=== PATIENT | female | born 1975 | race Caucasian/White ===

== ENCOUNTER 2024-07-08 15:42 | Inpatient (IN) | payer MEDICAID ==
[~2024-07-08] VITALS: Ht 165.1 cm; Wt 105.6 kg
--- NOTE | 2024-07-08 15:59 | Physician Documentation ---
History of Present Illness ~ Stated Complaint: 5150 Time Seen by MD: 15:51 HPI 28-year-old female presents via EMS after being placed on a 5150 by [facility] today. The patient is unwilling to cooperate with the interview in his resistant to provide the appropriate information. According to her 5150 she was experiencing paranoid and bizarre delusions. Believes she was being followed and endorses auditory hallucinations. Currently unable to meet her basic needs for food and half-way and keeps safe. According to paperwork Arlene his father dog says she was not talked to him for over a year and refuses to stay with the because she believes she has been locked into a facility previously. Day of Onset: Jul 08, 2024 Review of Systems All Other Systems at this time: Reviewed and Negative ROS As stated above in the HPI, otherwise all systems are reviewed and negative. Physical Exam Physical Exam General: Alert, no apparent distress. Respiratory: Lungs clear, no respiratory distress. Cardiovascular: Regular rate and rhythm, no murmurs. Neurologic: Oriented x4. Psychiatric: Flat affect, agitated responses Skin: Normal color, warm and dry. No edema, no ecchymosis. Progress Results/Orders Results/Orders Orders - JAGDISH CODY NP Med Rec (07/08/24 16:10) 1799.11 (07/08/24 16:10) Close Observation Level (07/08/24 16:10) Covid19 Binax Poc Result Entry (07/08/24 16:10) Substance Use Navigator (07/08/24 16:10) Regular Diet (07/08/24 Dinner) Completed Orders - JAGDISH CODY NP Cbc/Diff (07/08/24 16:10) Hcg, Ur Ql (07/08/24 16:10) Drug Screen, Urine (07/08/24 16:10) Ethanol (07/08/24 16:10) TSH (07/08/24 16:10) BMP (07/08/24 16:10) Ua With Microscopic (07/08/24 17:01) Vital Signs 07/08/24 15:50 Temp 97.0 Pulse 66 Resp 16 B/P (MAP) 108/92 Pulse Ox 96 Laboratory Tests Test 07/08/24 16:25 07/08/24 17:01 07/08/24 17:04 White Blood Count 5.4 Red Blood Count 4.72 Hemoglobin 12.4 Hematocrit 38.1 Mean Corpuscular Volume 80.8 Mean Corpuscular Hemoglobin 26.3 L Mean Corpuscular Hemoglobin Concent 32.5 L Red Cell Distribution Width 16.5 H Platelet Count 328 Mean Platelet Volume 8.6 Neutrophils (%) (Auto) 54.3 Lymphocytes (%) (Auto) 32.5 Monocytes (%) (Auto) 10.7 Eosinophils (%) (Auto) 1.5 Basophils (%) (Auto) 1.0 Neutrophils # (Auto) 2.9 Lymphocytes # (Auto) 1.8 Monocytes # (Auto) 0.6 Eosinophils # (Auto) 0.1 Basophils # (Auto) 0.1 CBC Comment Sodium Level 138 Potassium Level 3.2 L Chloride Level 104 Carbon Dioxide Level 26.1 Anion Gap 8 Blood Urea Nitrogen 7 Creatinine 0.78 Estimated GFR/1.73 m2 78 BUN/Creatinine Ratio 9.0 L Glucose Level 108 H Calcium Level 8.8 Albumin 3.7 Thyroid Stimulating Hormone (TSH) 1.35 Chemistry Comments Ethyl Alcohol Level < 10 Urine Specimen Description Voided Urine Color Yellow Urine Clarity Slightly cloudy Urine pH 6.0 Urine Specific [place] 1.025 Urine Protein Trace Urine Glucose (UA) Negative Urine Ketones Trace H Urine Occult Blood Negative Urine Nitrite Negative Urine Bilirubin Small Urine Urobilinogen 0.2 Urine Leukocyte Esterase Trace H Urine RBC 3-10 Urine WBC 0-4 Urine Squamous Epithelial Cells Few Urine Ammonium Biurate Crystals 3+ Urine Bacteria None seen Urine Mucus Few Volume Urine Centrifuged 10 ml Urine HCG, Qualitative Negative Urine Comment Urine Opiates Screen Negative Urine Methadone Screen Negative Urine Fentanyl Screen Negative Urine Barbiturates Screen Negative Urine Phencyclidine Screen Negative Urine Amphetamines Screen Negative Urine Benzodiazepines Screen Negative Urine Cocaine Screen Negative Urine Cannabinoids Screen Negative Drug Screen Comment Medical Decision Making Findings This patient presents with concerns of psychotic behavior. She was adamant that she has no other previous psychiatric diagnoses which is hard to believe based on her current behavior. Unwilling to disclose what medications he is historically taken.. States that is she was not [place] for unknown reasons and has been homeless.. Differential Dx:Considerations: Include: Alcohol abuse, Anxiety, Bipolar disorder, Conversion disorder, Depression, Encephaloathy, Homicidal, Panic disorder, Personality disorder, Schizophrenia, Substance abuse, Suicidal, Other Departure Impression: Primary Impression: Depression Additional Impression: Schizoaffective disorder Condition: Stable Additional Instructions: Transfer orders for [facility]: At this time there is no evidence of an emergent medical condition that would preclude (admission/transfer) to a psychiatric unit via [facility] protocol for further psychiatric, as well as medical evaluation and treatment. At this time I have no reason to believe that transfer via [facility] protocol would have serious medical compromise in the patient's health. Referrals: NO PRIMARY CARE PROVIDER (PCP) Education Educated: Patient Educated regarding: diagnosis Signature Scribe Signature: e Attestation: The note accurately reflects work and decisions made by me.Jagdish Billings NP 07/08/24 16:04 JAGDISH CODY NP Jul 08, 2024 15:59
[2024-07-08 16:37] LABS: BASOPHILS # (AUTO) 0.1 X10'3 (0-0.2); EOSINOPHILS # (AUTO) 0.1 X10'3 (0-0.9); EOSINOPHILS % (AUTO) 1.5 % (0-6); HEMATOCRIT 38.1 % (35.0-45.0); HEMOGLOBIN 12.4 g/dl (12.0-16.0); LYMPHOCYTES # (AUTO) 1.8 X10'3 (1.1-4.8); LYMPHOCYTES % (AUTO) 32.5 % (21-51); MEAN CORPUSCULAR HEMOGLOBIN 26.3 PG (27.0-31.0); MEAN CORPUSCULAR HGB CONC 32.5 g/dL (33.0-36.5); MEAN CORPUSCULAR VOLUME 80.8 FL (78-98); MEAN PLATELET VOLUME 8.6 FL (7.4-10.4); MONOCYTES # (AUTO) 0.6 X10'3 (0-0.9); MONOCYTES % (AUTO) 10.7 % (2-12); NEUTROPHILS # (AUTO) 2.9 X10'3 (1.8-7.7); NEUTROPHILS % (AUTO) 54.3 % (42-75); PLATELET COUNT 328 X10'3 (140-440); RED BLOOD COUNT 4.72 X10'6 (4.20-5.60); RED CELL DISTRIBUTION WIDTH 16.5 % (11.5-14.5); WHITE BLOOD COUNT 5.4 X10'3 (4.5-11.0)
[2024-07-08 16:58] LABS: ALBUMIN 3.7 G/DL (3.4-5.0); ANION GAP 8 (8-16); BLOOD UREA NITROGEN 7 MG/DL (7-18); CALCIUM 8.8 MG/DL (8.5-10.1); CHLORIDE 104 MMOL/L (99-107); CREATININE 0.78 MG/DL (0.40-0.90); GLUCOSE 108 MG/DL (70-104); POTASSIUM 3.2 MMOL/L (3.5-5.1); SODIUM 138 MMOL/L (135-145); THYROID STIMULATING HORMONE 1.35 ulU/ml (0.34-4.50); TOTAL CARBON DIOXIDE 26.1 MMOL/L (24-32); eCRCL 81 ML/MIN; eGFR 78 ML/MIN
[2024-07-08 16:59] LABS: ETHANOL < 10 MG/DL (<10)
[2024-07-08 17:19] LABS: BILIRUBIN,URINE SMALL (Neg); CLARITY,URINE SLIGHTLY CLOUDY (Clear); COLOR,URINE YELLOW (Yellow); GLUCOSE, URINE NEGATIVE (Neg); KETONES,URINE TRACE mg/dl (Neg); LEUKOCYTE ESTERASE ,URINE TRACE (Neg); NITRITES, URINE NEGATIVE (Neg); OCCULT BLOOD,URINE NEGATIVE (Neg); PROTEIN,URINE TRACE mg/dl (Neg); UROBILINOGEN,URINE 0.2 E.U/dL (0.2-1.0)
[2024-07-08 17:22] LABS: URINE HCG NEGATIVE (NEG)
[2024-07-08 17:23] LABS: UA COLLECTION TYPE VOIDED
[2024-07-08 17:29] LABS: WBC,URINE 0-4 /HPF (0-4)
[2024-07-08 17:30] LABS: AMMONIUM BIURATE CRYSTALS 3+ /HPF (NEGATIVE); BACTERIA,URINE NONE SEEN /HPF (Neg); MUCUS STRANDS FEW /LPF (Neg); SQUAMOUS EPITHELIAL CELL,UR FEW /LPF (FEW)
[2024-07-08 17:32] LABS: URINE AMPHETAMINE SCREEN NEGATIVE (Neg); URINE BARBITUATE SCREEN NEGATIVE (Neg); URINE BENZODIAZEPINES SCREEN NEGATIVE (Neg); URINE CANNABINOID SCREEN NEGATIVE (Neg); URINE COCAINE SCREEN NEGATIVE (Neg); URINE METHADONE SCREEN NEGATIVE (Neg); URINE OPIATE SCREEN NEGATIVE (Neg); URINE PHENCYCLIDINE SCREEN NEGATIVE (Neg)
[2024-07-08] MEDS: potassium Cl 20 mEq SR tablet PO STA (17:50)
[2024-07-09 00:40] VITALS: BP 108/65; PULSE 70; RESP 12; TEMP 98.1; O2SAT 97
[2024-07-09 00:50] VITALS: RESP 12; O2SAT 97
[2024-07-09] MEDS ORDERED: acetaminophen 325mg tablet PO PRN ×2 (00:50)
[2024-07-09] MEDS ORDERED: RISP-32 PO (04:16)
[2024-07-09 07:30] VITALS: RESP 16
--- NOTE | 2024-07-09 13:58 | HISTORY AND PHYSICAL ---
History & Physical - Blank History and Physical CHIEF COMPLAINT GRAVELY DISABILITY HISTORY OF PRESENT ILLNESS Girl female presents via EMS after being placed on a 5150 by [facility] today. The patient is unwilling to cooperate with the interview and is resistant to provide the appropriate information. According to her 5150 she was experiencing paranoid and bizarre delusions. He was being followed in endorses auditory hallucinations. Currently unable to meet her basic needs for food and longterm and keeps safe. According to paperwork Arlene hernandez says she will not talking to him for over a year and refuses to stay with them because she believes she has been locked into a facility previously. CHART REVIEW Client presents with paranoid and persecutory delusions including believes that is someone as locking her jaw, administrating medicines without her consent and that she has been follow. Client also believes the others are conspiring to cause her harm and are in agreement that she should by suicide. Additionally client reports experiencing auditory hallucinations, although was unable to provide could description of nature. Client may possibly be responding to internal stimuli as having. The what appeared to be property as speech. ASSESSMENT The patient is interviewed in observation room. Patient seen actively resting in bed with eyes open. The patient endorses " The patient endorses she is here because "I was being followed." "I don't know who was following me." I was scared then I got mad and the I don't know." "I just want it all to stop." I tried to make my medication and it made it worse." The patient endorses auditory hallucinations "I can't remember." "They put a thing in my mouth in my gum line that shoot frequency to me and able to control my emotions and do things I don't want to know." I will be in a good mood than out of no where like something just out of nowhere." Was sleeping I had things melt to my head; things that I don't want there." The patient endorse "yeah I see things but not all time; like right now I don't see things. "When the cars and stuff are chasing me I feel like killing myself." Denies HI. My ex-boyfriend said; but I am not going to say it because you are going to think I am hallucinating." I came up here to take a lie detector test to clear it all." I just want it fucking clear that I am not a child molester." Can you guys give me a lie detector for me." "Please don't twist my words because everyone has been twisting my words. "The medications are making me feel like my spirit is coming in and out of me. The demons are coming in and out." The been doing this for a long time; I think threw electronics or something." The patient endorses she stopped her medications, unknown time, but she felt better after she stopped taking them. "You can't stop demons unless you are a Zoroastrian or you kill the person." "To kill the person would be too easy and no fun." The patient is stable no acute distress noted. The patient is disorganized, paranoid delusions, and disengaged during session. Per staff report no behavior issues. Per staff report patient is compliant with medication regimen. Will continue daily assessment and adjusting treatment as needed. Closely monitor behavior and response to medication during hospitalization. Discussed treatment plan with patient. ASE/risks and benefits of chosen treatment. He verbalized understanding and consented to treatment. REVIEW OF LABS WBC 5.4 RBC 4.72 HEMOGLOBIN 12.4 HEMATOCRIT 38.1 PLATELET COUNT 328 SODIUM 138 POTASSIUM 3.2 CHLORIDE 104 ANION GAP 8 BUN 7 CREATININE 0.78 CALCIUM 8.8 ALBUMIN 3.7 TSH 1.35 URINALYSIS NEGATIVE COVID NEGATIVE URINE TOX SCREEN NEGATIVE MENTAL STATUS EXAM APPEARANCE: AVERAGE HEIGHT OBESE FEMALE. WEARING GREEN SCRUBS. WEARING GLASSES.BROWN,GRAYING SHOULDER LENGTH HAIR. SPEECH: PRESSURED, TANGENTIAL EYE CONTACT:AVOIDANT AFFECT: LIABLE MOOD: IRRITABLE, ANGRY, ANXIOUS ORIENTATION IMPAIRMENT: NONE MEMORY IMPAIRMENT: NONE ATTENTION: FULL HALLUCINATIONS:AUDITORY, VISUAL SUICIDALITY: IDEATION DELUSIONS: PARANOID BEHAVIOR: PARANOID, AGITATED JUDGMENT: POOR INSIGHT: POOR TREATMENT ZYPREXA ZYDIS 10MG PO QHS Monitoring by Staff, Milieu, Group, and Individual counseling as needed -- According to the [place] Suicide Assessment the above named patient is on Q 15 MINUTE CHECKS. [id number]-The patient is unable to formulate a viable plan for food, clothing and longterm. We are still titrating medications to an effective dose while maintaining a therapeutic environment to prevent decompensation and readmission. REVIEW OF Clinical notes [X ] RN notes [X] PCT documentation [X] SW notes Labs [ X] Medications [X] Care trends/care activity [X] Vitals [X] DISCUSSION WITH ceramic coater [X] Staff SW [X] Treatment Team [X] DISCHARGE UNSURE AT THIS TIME. DISCHARGE HOME ONCE STABLE. 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 Social Activity PATIENT REFUSED TO ANSWER Jew PATIENT REFUSED TO ANSWER Legal History DENIES ANY LEGAL HISTORY History DENIES ANY HISTORY Developmental History and PATIENT REFUSED TO ANSWER Childhood "I DON'T REMEMBER" Assessment/Plan Problems/Diagnosis: (1) Schizoaffective disorder (2) Psychosis (3) Paranoid delusion (4) Auditory hallucinations CODING VISIT-PSYCHIATRY Date of Service: Jul 09, 2024 Billing Provider: PARISH SMITH APRN Psych Common Visit Codes: [id number] INP/OBS CARE (High) Problem Qualifiers (1) Psychosis: Qualified Codes: F29 - Unspecified psychosis not due to a substance or known physiological condition PARISH SMITH APRN Jul 09, 2024 13:58
[2024-07-09] MEDS: OLANZapine 5mg rapidly disint. tablet PO ONE (14:23)
[2024-07-09] MEDS: risperiDONE 2mg tablet PO ONE (14:26)
--- NOTE | 2024-07-09 18:53 | HISTORY AND PHYSICAL ---
History & Physical Providers to CC ~ History of Present Illness Reason for Admit\\Complaint: on a 5150 by [facility] History of Present Illness Patient was seen in presence of nursing staff but patient refused to get e xamined and does not want to disclose any information to me all the history is obtained from ER records and psychiatric consult notes. As per ER record" According to her 5150 she was experiencing paranoid and bizarre delusions. Believes she was being followed and endorses auditory hallucinations. Currently unable to meet her basic needs for food and detention and keeps safe. " Allergies: Coded Allergies: No Known Allergies (Unverified , 07/09/24) Home Medications Home Medications Active Reported Risperidone 2 Mg Tablet 1 Tab PO HS 30 Days Past Medical History Past Medical History Unable to obtain Past Surgical History Surgical History Comment Unable to obtain Past Social History Social History Comment Unable to obtain ROS ROS Unable to obtain Exam Vitals: Vital Signs Date Time Temp Pulse Resp B/P (MAP) Pulse Ox O2 Delivery O2 Flow Rate FiO2 07/09/24 07:30 16 Room Air 07/09/24 00:50 97 07/09/24 00:40 98.1 70 General: General: Alert, no apparent distress. Eyes-no icterus or pallor seen in her eyes Neurologic: Awake Extremity- able to move all four extremity Psychiatric: Flat affect, appeared anxious Skin: Normal color, Diagnostic Data Last Recorded Lab Results: 07/08/24 1625 07/08/24 162 Additional Plan Further management of schizoaffective disorder, psychosis, paranoid delusion and auditory hallucination as per psychiatric team. We will continue to follow from hospitalist team as needed or as per protocol Date of Service: Jul 09, 2024 Billing Provider: TIFFANIE DELGADO MD Common Visit Codes: [id number] INP/OBS CARE (LOW), NOT BILLABLE TIFFANIE DELGADO MD Jul 09, 2024 18:53
[2024-07-09 19:00] VITALS: RESP 12
[2024-07-09] MEDS: potassium Cl 20 mEq SR tablet PO ONE (19:45)
[2024-07-09 19:47] VITALS: RESP 16
[2024-07-09] MEDS ORDERED: risperiDONE 2mg tablet PO SCH (21:00)
[2024-07-10 07:30] VITALS: RESP 16
[2024-07-10 07:54] LABS: BASOPHILS # (AUTO) 0.1 X10'3 (0-0.2); EOSINOPHILS # (AUTO) 0.2 X10'3 (0-0.9); EOSINOPHILS % (AUTO) 3.5 % (0-6); HEMATOCRIT 37.9 % (35.0-45.0); HEMOGLOBIN 12.4 g/dl (12.0-16.0); LYMPHOCYTES # (AUTO) 1.5 X10'3 (1.1-4.8); LYMPHOCYTES % (AUTO) 29.5 % (21-51); MEAN CORPUSCULAR HEMOGLOBIN 26.5 PG (27.0-31.0); MEAN CORPUSCULAR HGB CONC 32.7 g/dL (33.0-36.5); MEAN PLATELET VOLUME 8.6 FL (7.4-10.4); MONOCYTES # (AUTO) 0.6 X10'3 (0-0.9); MONOCYTES % (AUTO) 10.9 % (2-12); NEUTROPHILS # (AUTO) 2.9 X10'3 (1.8-7.7); NEUTROPHILS % (AUTO) 55.1 % (42-75); PLATELET COUNT 276 X10'3 (140-440); RED BLOOD COUNT 4.68 X10'6 (4.20-5.60); RED CELL DISTRIBUTION WIDTH 16.6 % (11.5-14.5); WHITE BLOOD COUNT 5.2 X10'3 (4.5-11.0)
[2024-07-10 08:43] LABS: ALANINE AMINOTRANSFERASE 28 U/L (12-78); ALBUMIN 3.3 G/DL (3.4-5.0); ALKALINE PHOSPHATASE 82 IU/L (46-116); ANION GAP 10 (8-16); ASPARTATE AMINO TRANSFERASE 31 U/L (10-37); BILIRUBIN,TOTAL 0.5 MG/DL (0.1-1.0); BLOOD UREA NITROGEN 9 MG/DL (7-18); BUN/CREATININE RATIO 12.3 (10.0-20.0); CALCIUM 8.6 MG/DL (8.5-10.1); CHLORIDE 106 MMOL/L (99-107); CHOL/HDL RATIO 4.1 (0.00-4.99); CHOLESTEROL 170 MG/DL (0-200); CREATININE 0.73 MG/DL (0.40-0.90); GLUCOSE 104 MG/DL (70-104); HDL CHOLESTEROL 41 MG/DL (35-60); LDL CHOLESTEROL 108 MG/DL (50-100); POTASSIUM 3.3 MMOL/L (3.5-5.1); SODIUM 144 MMOL/L (135-145); THYROID STIMULATING HORMONE 1.08 ulU/ml (0.34-4.50); TOTAL CARBON DIOXIDE 27.9 MMOL/L (24-32); TOTAL PROTEIN 6.7 G/DL (6.4-8.2); TRIGLYCERIDES 119 MG/DL (20-135); eCRCL 83 ML/MIN; eGFR 84 ML/MIN
[2024-07-10 08:45] LABS: HEMOGLOBIN A1C 5.4 % (4.5-6.2)
[2024-07-10 12:25] VITALS: RESP 16
--- NOTE | 2024-07-10 14:25 | PROGRESS NOTE ---
Progress Note Dictate Providers to CC ~ Central Line/PICC still needed: N\\A Antibiotic Ordered?: No MRSA Education MRSA Education Provided to pt: No Objective Vitals Vital Signs Date Time Temp Pulse Resp B/P (MAP) Pulse Ox O2 Delivery O2 Flow Rate FiO2 07/10/24 12:25 16 Room Air 07/09/24 07:30 07/09/24 00:50 97 07/09/24 00:40 98.1 70 Lab Results: 07/10/24 0734 07/10/24 0734 Problem\\Assessment\\Plan Problems/Diagnosis: (1) Schizoaffective disorder (2) Psychosis (3) Paranoid delusion (4) Auditory hallucinations Psychiatrist's Progress Note Date of Service: Jul 10, 2024 Notes CHART REVIEW Client presents with paranoid and persecutory delusions including believes that is someone as locking her jaw, administrating medicines without her consent and that she has been follow. Client also believes the others are conspiring to cause her harm and are in agreement that she should by suicide. Additionally client reports experiencing auditory hallucinations, although was unable to provide could description of nature. Client may possibly be responding to internal stimuli as having. The what appeared to be property as speech. ASSESSMENT The patient was laying on the hallway floor and refused to get up. Security was called and patient got up. "Just leave me alone." The patient is stable no acute distress. The patient is irritable, easily agitated and disengaged in session. Per staff report the patient refused her morning zyprexa. Will continue daily assessment and adjusting treatment as needed. Closely monitor behavior and response to medication during hospitalization. Results Of any Diagn. Testing REVIEW OF LABS WBC 5.4 RBC 4.72 HEMOGLOBIN 12.4 HEMATOCRIT 38.1 PLATELET COUNT 328 SODIUM 138 POTASSIUM 3.2 CHLORIDE 104 ANION GAP 8 BUN 7 CREATININE 0.78 CALCIUM 8.8 ALBUMIN 3.7 TSH 1.35 URINALYSIS NEGATIVE COVID NEGATIVE URINE TOX SCREEN NEGATIVE Appearnace: Other Speech: Pressured Eye Contact: Intense Motor Activity: Normal Affect: Labile Mood: Irritable Attention: Distracted Hallucinations: None Other: None Suicidality: None Homicidality: None Delusions: None Behavior: Guarded, Paranoid Insight: Poor Judgment: Poor Treatment ZYPREXA ZYDIS 10MG PO QAM Monitoring by Staff, Milieu, Group, and Individual counseling as needed -- According to the [place] Suicide Assessment the above named patient is on Q 15 MINUTE CHECKS. [id number]-The patient is unable to formulate a viable plan for food, clothing and senior care. We are still titrating medications to an effective dose while maintaining a therapeutic environment to prevent decompensation and readmission. REVIEW OF Clinical notes [X ] RN notes [X] PCT documentation [X] SW notes Labs [ X] Medications [X] Care trends/care activity [X] Vitals [X] DISCUSSION WITH digital research analyst [X] Staff SW [X] Treatment Team [X] Discharge UNSURE AT THIS TIME. DISCHARGE HOME ONCE STABLE. CODING VISIT-PSYCHIATRY Date of Service: Jul 10, 2024 Billing Provider: PARISH SMITH APRN Psych Common Visit Codes: [id number] INP/OBS CARE(Mod) Problem Qualifiers (1) Psychosis: Qualified Codes: F29 - Unspecified psychosis not due to a substance or known physiological condition PARISH SMITH APRN Jul 10, 2024 14:25
[2024-07-10] MEDS: OLANZapine 5mg rapidly disint. tablet PO SCH (14:35)
[2024-07-10] MEDS: OLANZapine 5mg rapidly disint. tablet PO ONE (16:07)
[2024-07-11 07:40] VITALS: BP 109/66; PULSE 56; RESP 17; TEMP 98; O2SAT 99
[2024-07-11 09:21] VITALS: RESP 17; O2SAT 99
--- NOTE | 2024-07-11 12:49 | PROGRESS NOTE ---
Progress Note Dictate Providers to CC ~ Central Line/PICC still needed: N\A Antibiotic Ordered?: No MRSA Education MRSA Education Provided to pt: No Objective Vitals Vital Signs Date Time Temp Pulse Resp B/P (MAP) Pulse Ox O2 Delivery O2 Flow Rate FiO2 07/11/24 09:21 17 99 Room Air 07/11/24 07:40 98.0 56 109/66 (80) Lab Results: 07/10/24 0734 07/10/24 0734 Problem\Assessment\Plan Problems/Diagnosis: (1) Schizoaffective disorder (2) Psychosis (3) Paranoid delusion (4) Auditory hallucinations Psychiatrist's Progress Note Date of Service: Jul 11, 2024 Notes CHART REVIEW Client presents with paranoid and persecutory delusions including believes that is someone as locking her jaw, administrating medicines without her consent and that she has been follow. Client also believes the others are conspiring to cause her harm and are in agreement that she should by suicide. Additionally client reports experiencing auditory hallucinations, although was unable to provide could description of nature. Client may possibly be responding to internal stimuli as having. The what appeared to be property as speech. ASSESSMENT CHART REVIEW Client presents with paranoid and persecutory delusions including believes that is someone as locking her jaw, administrating medicines without her consent and that she has been follow. Client also believes the others are conspiring to cause her harm and are in agreement that she should by suicide. Additionally client reports experiencing auditory hallucinations, although was unable to provide could description of nature. Client may possibly be responding to internal stimuli as having. The what appeared to be property as speech. ASSESSMENT Patient seen actively resting in bed with eyes open. The patient refused to speak with this clinician. The patient is stable no acute distress noted. Per staff report no behavior issues. Per staff report patient is compliant with medication regimen. Will continue daily assessment and adjusting treatment as needed. Closely monitor behavior and response to medication during hospitalization. Results Of any Diagn. Testing REVIEW OF LABS WBC 5.4 RBC 4.72 HEMOGLOBIN 12.4 HEMATOCRIT 38.1 PLATELET COUNT 328 SODIUM 138 POTASSIUM 3.2 CHLORIDE 104 ANION GAP 8 BUN 7 CREATININE 0.78 CALCIUM 8.8 ALBUMIN 3.7 TSH 1.35 URINALYSIS NEGATIVE COVID NEGATIVE URINE TOX SCREEN NEGATIVE Behavior: Guarded Insight: Poor Judgment: Poor Treatment ZYPREXA ZYDIS 10MG PO QAM Monitoring by Staff, Milieu, Group, and Individual counseling as needed -- According to the [place] Suicide Assessment the above named patient is on Q 15 MINUTE CHECKS. [id number]-The patient is unable to formulate a viable plan for food, clothing and custodial. We are still titrating medications to an effective dose while maintaining a therapeutic environment to prevent decompensation and readmission. REVIEW OF Clinical notes [X ] RN notes [X] PCT documentation [X] SW notes Labs [ X] Medications [X] Care trends/care activity [X] Vitals [X] DISCUSSION WITH customer manager [X] Staff SW [X] Treatment Team [X] Discharge UNSURE AT THIS TIME. DISCHARGE HOME ONCE STABLE. CODING VISIT-PSYCHIATRY Date of Service: Jul 11, 2024 Billing Provider: PARISH SMITH APRN Psych Common Visit Codes: [id number] INP/OBS CARE(Mod) Problem Qualifiers (1) Psychosis: Qualified Codes: F29 - Unspecified psychosis not due to a substance or known physiological condition PARISH SMITH APRN Jul 11, 2024 12:49
--- NOTE | 2024-07-11 20:02 | PROGRESS NOTE- Residence ---
Progress Note - Resident Providers to CC Resident Creating Document: PORSCHE NUNEZ RES ~ Antibiotic Timeout Antibiotic Ordered?: No Subjective Patient was seen and examined at the mental health unit today. She complained of constipation. Objective Vital Signs Date Time Temp Pulse Resp B/P (MAP) Pulse Ox O2 Delivery O2 Flow Rate FiO2 07/11/24 19:20 Room Air 07/11/24 09:21 17 99 07/11/24 07:40 98.0 56 109/66 (80) Result Diagram: 07/10/24 0734 07/10/24 0734 General: Awake and Alert, no acute distress. HEENT: Conjunctiva pink, Sclera clear, Mucus Membranes moist. Resp: Bilateral lung sounds are clear. Heart: Regular Rate and rhythm, normal S1 and S2 without murmur, rub or gallop. Abdomen: No tenderness, no guarding, no rigidity, bowel sounds heard Extremities: No cyanosis,clubbing or edema. AIRCRAFT CHARTER DISPATCHER: Conscious, coherent, oriented x3. No motor or sensory deficits. No cranial nerve deficits Skin: Warm and Dry. No purpura noted, Plan Plan schizoaffective disorder, psychosis, paranoid delusion and auditory hallucination -managed as per psychiatrist Hypokalemia Potassium 3.3 Continue monitoring. Constipation MiraLax ordered We will continue to follow from hospitalist team as needed or as per protocol Date of Service: Jul 11, 2024 Billing Provider: LAURYN BALDWIN MD Common Visit Codes: [id number] INP/OBS CARE(MOD) PORSCHE NUNEZ RES Jul 11, 2024 20:02 LAURYN BALDWIN MD Jul 11, 2024 20:34
[2024-07-12 07:07] VITALS: RESP 16
[2024-07-12 08:17] VITALS: RESP 12
--- NOTE | 2024-07-12 16:42 | PROGRESS NOTE ---
Progress Note Dictate Providers to CC ~ Antibiotic Ordered?: No MRSA Education MRSA Education Provided to pt: No Objective Vitals Vital Signs Date Time Temp Pulse Resp B/P (MAP) Pulse Ox O2 Delivery O2 Flow Rate FiO2 07/12/24 08:17 12 Room Air 07/11/24 09:21 99 07/11/24 07:40 98.0 56 109/66 (80) Lab Results: 07/10/24 0734 07/10/24 0734 Problem\Assessment\Plan Problems/Diagnosis: (1) Schizoaffective disorder (2) Psychosis (3) Paranoid delusion (4) Auditory hallucinations Psychiatrist's Progress Note Date of Service: Jul 12, 2024 Notes CHART REVIEW Client presents with paranoid and persecutory delusions including believes that is someone as locking her jaw, administrating medicines without her consent and that she has been follow. Client also believes the others are conspiring to cause her harm and are in agreement that she should by suicide. Additionally client reports experiencing auditory hallucinations, although was unable to provide could description of nature. Client may possibly be responding to internal stimuli as having. The what appeared to be property as speech. ASSESSMENT Patient seen actively resting in bed with eyes open. The patient refused to speak with this clinician. The patient is stable no acute distress noted. Per staff report patient refuses vitals, meals and assessments. Per staff report patient is compliant with medication regimen. Will continue daily assessment and adjusting treatment as needed. Closely monitor behavior and response to medication during hospitalization. Results Of any Diagn. Testing REVIEW OF LABS WBC 5.4 RBC 4.72 HEMOGLOBIN 12.4 HEMATOCRIT 38.1 PLATELET COUNT 328 SODIUM 138 POTASSIUM 3.2 CHLORIDE 104 ANION GAP 8 BUN 7 CREATININE 0.78 CALCIUM 8.8 ALBUMIN 3.7 TSH 1.35 URINALYSIS NEGATIVE COVID NEGATIVE URINE TOX SCREEN NEGATIVE Eye Contact: Avoidant Behavior: Guarded Insight: Poor Judgment: Poor Treatment ZYPREXA ZYDIS 10MG PO QHS Monitoring by Staff, Milieu, Group, and Individual counseling as needed -- According to the [place] Suicide Assessment the above named patient is on Q 15 MINUTE CHECKS. [id number]-The patient is unable to formulate a viable plan for food, clothing and fdc. We are still titrating medications to an effective dose while maintaining a therapeutic environment to prevent decompensation and readmission. REVIEW OF Clinical notes [X ] RN notes [X] PCT documentation [X] SW notes Labs [ X] Medications [X] Care trends/care activity [X] Vitals [X] DISCUSSION WITH bull rider [X] Staff SW [X] Treatment Team [X] Discharge UNSURE AT THIS TIME. DISCHARGE HOME ONCE STABLE. CODING VISIT-PSYCHIATRY Date of Service: Jul 12, 2024 Billing Provider: PARISH SMITH APRN Psych Common Visit Codes: [id number] INP/OBS CARE(Mod) Problem Qualifiers (1) Psychosis: Qualified Codes: F29 - Unspecified psychosis not due to a substance or known physiological condition PARISH SMITH APRN Jul 12, 2024 16:42
[2024-07-12 20:00] VITALS: RESP 16
[2024-07-13 08:00] VITALS: BP 90/44; PULSE 53; RESP 16; TEMP 98.3; O2SAT 98
[2024-07-13] MEDS ORDERED: diazepam inj 5 MG/ML inj. IV ONE (12:35)
--- NOTE | 2024-07-13 12:46 | PROGRESS NOTE ---
Progress Note Dictate Providers to CC ~ Central Line/PICC still needed: N\\A Antibiotic Ordered?: No MRSA Education MRSA Education Provided to pt: No Objective Vitals Vital Signs Date Time Temp Pulse Resp B/P (MAP) Pulse Ox O2 Delivery O2 Flow Rate FiO2 07/12/24 20:00 16 Room Air 07/11/24 09:21 99 07/11/24 07:40 98.0 56 109/66 (80) Lab Results: 07/10/24 0734 07/10/24 0734 Problem\\Assessment\\Plan Problems/Diagnosis: (1) Schizoaffective disorder (2) Psychosis (3) Paranoid delusion (4) Auditory hallucinations Psychiatrist's Progress Note Date of Service: Jul 13, 2024 Notes CHART REVIEW Client presents with paranoid and persecutory delusions including believes that is someone as locking her jaw, administrating medicines without her consent and that she has been follow. Client also believes the others are conspiring to cause her harm and are in agreement that she should by suicide. Additionally client reports experiencing auditory hallucinations, although was unable to provide could description of nature. Client may possibly be responding to internal stimuli as having. The what appeared to be property as speech. ASSESSMENT The patient is interviewed in observation room. Patient seen actively sitting in the lunch area. The patient endorses " I am being friend and I can not tell you about it because you apart of it." You told me you would give me a lie detector test to prove to everyone that I am not a child molester." The patient repeatedly endorses "I am not a child molester, I am not a child m olester." Patient then became upset through her foods across the room and walked out of the office yelling "I am not a a child molester." The patient is stable no acute distress noted. The patient is irritable, agitated, paranoid delusions, and disengaged during session. Per staff report no behavior issues. Per staff report patient is compliant with medication regimen. Per staff report the patient isolates in room. Will continue daily assessment and adjusting treatment as needed. Closely monitor behavior and response to medication during hospitalization. Results Of any Diagn. Testing REVIEW OF LABS WBC 5.4 RBC 4.72 HEMOGLOBIN 12.4 HEMATOCRIT 38.1 PLATELET COUNT 328 SODIUM 138 POTASSIUM 3.2 CHLORIDE 104 ANION GAP 8 BUN 7 CREATININE 0.78 CALCIUM 8.8 ALBUMIN 3.7 TSH 1.35 URINALYSIS NEGATIVE COVID NEGATIVE URINE TOX SCREEN NEGATIVE Appearnace: Disheveled (MALODOROUS. AVERAGE HEIGHT OBESE FEMALE. WEARING GREEN SCRUBS.) Speech: Tangential, Pressured Eye Contact: Intense Motor Activity: Restless Affect: Labile Mood: Angry, Irritable Orientation Impairment: None Memory Impairment: None Attention: Normal Hallucinations: None Other: None Suicidality: None Homicidality: None Delusions: Paraniod Behavior: Agitated, Paranoid, Aggressive Insight: Poor Judgment: Poor Treatment Increase ZYPREXA ZYDIS 15MG PO QHS Monitoring by Staff, Milieu, Group, and Individual counseling as needed -- According to the [place] Suicide Assessment the above named patient is on Q 15 MINUTE CHECKS. [id number]-The patient is unable to formulate a viable plan for food, clothing and alf. We are still titrating medications to an effective dose while maintaining a therapeutic environment to prevent decompensation and readmission. REVIEW OF Clinical notes [X ] RN notes [X] PCT documentation [X] SW notes Labs [ X] Medications [X] Care trends/care activity [X] Vitals [X] DISCUSSION WITH biscuitware brusher [X] Staff SW [X] Treatment Team [X] Discharge UNSURE AT THIS TIME. DISCHARGE HOME ONCE STABLE. CODING VISIT-PSYCHIATRY Date of Service: Jul 13, 2024 Billing Provider: PARISH SMITH APRN Psych Common Visit Codes: [id number] INP/OBS CARE(Mod) Problem Qualifiers (1) Psychosis: Qualified Codes: F29 - Unspecified psychosis not due to a substance or known physiological condition PARISH SMITH APRN Jul 13, 2024 12:46
[2024-07-13] MEDS: diazepam inj 5 MG/ML inj. IM ONE (12:57)
[2024-07-13] MEDS: haloperidol lactate 5mg/ml inj ONE (12:57)
[2024-07-13] MEDS: diphenhydrAMINE 50 mg/ml inj ONE (12:58)
[2024-07-13] MEDS ORDERED: chlorproMAZINE 25mg tablet PO PRN (18:50)
[2024-07-13] MEDS ORDERED: traZODone 50mg tablet PO PRN (18:50)
[2024-07-13] MEDS ORDERED: diphenhydrAMINE 25mg capsule PO PRN (18:50)
[2024-07-13] MEDS ORDERED: ondansetron 4mg rapidly disintigrating tab PO PRN (18:50)
[2024-07-13 19:00] VITALS: RESP 16; O2SAT 95
[2024-07-13 20:00] VITALS: BP 102/56; PULSE 71; RESP 18; TEMP 99; O2SAT 95
[2024-07-13] MEDS: OLANZapine 5mg rapidly disint. tablet PO SCH (20:11)
[2024-07-13] MEDS ORDERED: OLANZapine 5mg rapidly disint. tablet PO SCH (21:00)
[2024-07-14 07:00] VITALS: RESP 14
--- NOTE | 2024-07-14 11:34 | PROGRESS NOTE ---
Progress Note Dictate Providers to CC ~ Central Line/PICC still needed: N\A Antibiotic Ordered?: No MRSA Education MRSA Education Provided to pt: No Objective Vitals Vital Signs Date Time Temp Pulse Resp B/P (MAP) Pulse Ox O2 Delivery O2 Flow Rate FiO2 07/14/24 07:00 14 07/13/24 20:00 99.0 71 102/56 (71) 95 Room Air Lab Results: 07/10/24 0734 07/10/24 0734 Problem\Assessment\Plan Problems/Diagnosis: (1) Schizoaffective disorder (2) Psychosis (3) Paranoid delusion (4) Auditory hallucinations Psychiatrist's Progress Note Notes CHART REVIEW Client presents with paranoid and persecutory delusions including believes that is someone as locking her jaw, administrating medicines without her consent and that she has been follow. Client also believes the others are conspiring to cause her harm and are in agreement that she should by suicide. Additionally client reports experiencing auditory hallucinations, although was unable to provide could description of nature. Client may possibly be responding to internal stimuli as having. The what appeared to be property as speech. ASSESSMENT The patient seen actively resting in bed with eyes open. The patient refused to speak to this clinician. The patient is stable no acute distress noted. Per staff report no behavior issues. Per staff report patient is compliant with medication regimen. Per staff report the patient isolates in room. Will continue daily assessment and adjusting treatment as needed. Closely monitor behavior and response to medication during hospitalization. Results Of any Diagn. Testing REVIEW OF LABS WBC 5.4 RBC 4.72 HEMOGLOBIN 12.4 HEMATOCRIT 38.1 PLATELET COUNT 328 SODIUM 138 POTASSIUM 3.2 CHLORIDE 104 ANION GAP 8 BUN 7 CREATININE 0.78 CALCIUM 8.8 ALBUMIN 3.7 TSH 1.35 URINALYSIS NEGATIVE COVID NEGATIVE URINE TOX SCREEN NEGATIVE Appearnace: Other (MALODOROUS. AVERAGE HEIGHT OBESE FEMALE. WEARING GREEN SCRUBS) Behavior: Guarded Insight: Poor Judgment: Poor Treatment ZYPREXA ZYDIS 15MG PO QHS Monitoring by Staff, Milieu, Group, and Individual counseling as needed -- According to the [place] Suicide Assessment the above named patient is on Q 15 MINUTE CHECKS. [id number]-The patient is unable to formulate a viable plan for food, clothing and half-way. We are still titrating medications to an effective dose while maintaining a therapeutic environment to prevent decompensation and readmission. REVIEW OF Clinical notes [X ] RN notes [X] PCT documentation [X] SW notes Labs [ X] Medications [X] Care trends/care activity [X] Vitals [X] DISCUSSION WITH asset analyst [X] Staff SW [X] Treatment Team [X] Discharge UNSURE AT THIS TIME. DISCHARGE HOME ONCE STABLE. CODING VISIT-PSYCHIATRY Date of Service: Jul 14, 2024 Billing Provider: PARISH SMITH APRN Psych Common Visit Codes: [id number] INP/OBS CARE(Mod) Problem Qualifiers (1) Psychosis: Qualified Codes: F29 - Unspecified psychosis not due to a substance or known physiological condition PARISH SMITH APRN Jul 14, 2024 11:33
[2024-07-14 19:00] VITALS: RESP 16; O2SAT 97
[2024-07-14 20:00] VITALS: BP 96/60; PULSE 66; RESP 16; TEMP 98.6; O2SAT 97
[2024-07-15 07:30] VITALS: RESP 16
--- NOTE | 2024-07-15 11:55 | PROGRESS NOTE ---
Progress Note Dictate Providers to CC ~ Central Line/PICC still needed: N\\A Antibiotic Ordered?: No MRSA Education MRSA Education Provided to pt: No Objective Vitals Vital Signs Date Time Temp Pulse Resp B/P (MAP) Pulse Ox O2 Delivery O2 Flow Rate FiO2 07/14/24 20:00 98.6 66 16 96/60 (72) 97 Room Air Problem\\Assessment\\Plan Problems/Diagnosis: (1) Schizoaffective disorder (2) Psychosis (3) Paranoid delusion (4) Auditory hallucinations Psychiatrist's Progress Note Date of Service: Jul 15, 2024 Notes CHART REVIEW Client presents with paranoid and persecutory delusions including believes that is someone as locking her jaw, administrating medicines without her consent and that she has been follow. Client also believes the others are conspiring to cause her harm and are in agreement that she should by suicide. Additionally client reports experiencing auditory hallucinations, although was unable to provide could description of nature. Client may possibly be responding to internal stimuli as having. The what appeared to be property as speech. ASSESSMENT The patient is interviewed in observation room. The patient seen actively sitting in chair eating a bag of potato chips. The patient endorses "Sona is not here at the moment leave a message after the beep, beep." The patient is stable no acute distress noted. Per staff report no behavior issues. Per staff report patient is compliant with medication regimen. Per staff report the patient isolates in room. Will continue daily assessment and adjusting treatment as needed. Closely monitor behavior and response to medication during hospitalization. Results Of any Diagn. Testing REVIEW OF LABS WBC 5.4 RBC 4.72 HEMOGLOBIN 12.4 HEMATOCRIT 38.1 PLATELET COUNT 328 SODIUM 138 POTASSIUM 3.2 CHLORIDE 104 ANION GAP 8 BUN 7 CREATININE 0.78 CALCIUM 8.8 ALBUMIN 3.7 TSH 1.35 URINALYSIS NEGATIVE COVID NEGATIVE URINE TOX SCREEN NEGATIVE Appearnace: Other (MALODOROUS. AVERAGE HEIGHT OBESE FEMALE. WEARING GREEN SCRUBS) Behavior: Guarded Insight: Poor Judgment: Poor Treatment ZYPREXA ZYDIS 15MG PO QHS Monitoring by Staff, Milieu, Group, and Individual counseling as needed -- According to the [place] Suicide Assessment the above named patient is on Q 15 MINUTE CHECKS. [id number]-The patient is unable to formulate a viable plan for food, clothing and intermediate. We are still titrating medications to an effective dose while ma intaining a therapeutic environment to prevent decompensation and readmission. REVIEW OF Clinical notes [X ] RN notes [X] PCT documentation [X] SW notes Labs [ X] Medications [X] Care trends/care activity [X] Vitals [X] DISCUSSION WITH customer service advisor [X] Staff SW [X] Treatment Team [X] Discharge UNSURE AT THIS TIME. DISCHARGE HOME ONCE STABLE. CODING VISIT-PSYCHIATRY Date of Service: Jul 15, 2024 Billing Provider: PARISH SMTIH APRN Psych Common Visit Codes: [id number] INP/OBS CARE(Mod) Problem Qualifiers (1) Psychosis: Qualified Codes: F29 - Unspecified psychosis not due to a substance or known physiological condition PARISH SMITH APRN Jul 15, 2024 11:55
--- NOTE | 2024-07-15 18:05 | PROGRESS NOTE ---
Daily Progress Note Providers to CC ~ Antibiotic Timeout Antibiotic Ordered?: No Subjective Patient was seen in her room she looked comfortable she is eager to eat her food in barely allowed me to examine her Objective Vital Signs Date Time Temp Pulse Resp B/P (MAP) Pulse Ox O2 Delivery O2 Flow Rate FiO2 07/15/24 07:30 16 07/15/24 07:30 Room Air 07/14/24 20:00 98.6 66 96/60 (72) 97 General-patient not in any acute distress, awake chronically ill-appearing, appear anxious HEENT-atraumatic normocephalic, neck supple without elevated JVD, No lymphadenopathy bilaterally. Eyes-no icterus or pallor seen in eyes Chest-clear to auscultation bilaterally, breathing nonlabored no tachypnea, no wheezing, no crepitation, no crackles. Heart-S1-S2 normal, regular heart rate no murmur Abdomen bowel sounds positive on auscultation, soft nondistended nontender no guarding, no rigidity Skin no active skin rash Neurology-grossly intact, nonfocal alert awake cooperated during physical ex amination Extremity- no pedal edema able to move all 4 extremities Problem\Assessment\Plan schizoaffective disorder, psychosis, paranoid delusion and auditory hallucination -managed as per psychiatrist Hypokalemia Potassium 3.3 on 07/10/24 Continue monitoring. Constipation MiraLax ordered We will continue to follow from hospitalist team as needed or as per protocol Date of Service: Jul 15, 2024 Billing Provider: TIFFANIE DELGADO MD Common Visit Codes: [id number] INP/OBS CARE(LOW) TIFFANIE DELGADO MD Jul 15, 2024 18:05
[2024-07-15 20:00] VITALS: BP 95/60; PULSE 60; RESP 16; TEMP 97.7; O2SAT 100
[2024-07-15] MEDS: polyethylene glycol 3350 17gm powd pack PO PRN (20:49)
--- NOTE | 2024-07-16 07:11 | PROGRESS NOTE ---
Progress Note Dictate Providers to CC ~ Central Line/PICC still needed: N\\A Antibiotic Ordered?: No MRSA Education MRSA Education Provided to pt: No Objective Vitals Vital Signs Date Time Temp Pulse Resp B/P (MAP) Pulse Ox O2 Delivery O2 Flow Rate FiO2 07/15/24 20:00 97.7 60 16 95/60 (72) 100 07/15/24 19:37 Room Air Problem\\Assessment\\Plan Problems/Diagnosis: (1) Schizoaffective disorder (2) Psychosis (3) Paranoid delusion (4) Auditory hallucinations Psychiatrist's Progress Note Date of Service: Jul 16, 2024 Notes CHART REVIEW Client presents with paranoid and persecutory delusions including believes that is someone as locking her jaw, administrating medicines without her consent and that she has been follow. Client also believes the others are conspiring to cause her harm and are in agreement that she should by suicide. Additionally client reports experiencing auditory hallucinations, although was unable to provide could description of nature. Client may possibly be resp onding to internal stimuli as having. The what appeared to be property as speech. ASSESSMENT The patient is interviewed in observation room. The patient seen actively walking in the hallway. The patient endorses "I think the lady, when she came to draw my blood, injected me with something in his making me not want to eat." "I think I am allergic to milk; I did not realize it before but my throat tightening up and I can't eat, nothing can go through and I am spitting up white mucus." The patient endorses "no I do not want to be discharge there are people following me out there." Denies SI. Denies HI. Denies AVH. The patient endorses adequate sleep and food intake. The patient is stable no acute distress noted. The patient is paranoid, delusional and engaged during session. Per staff report no behavior issues. Per staff report patient is compliant with medication regimen. Per staff report the patient isolates in room. The patient encouraged to shower incomplete ADLs daily. The patient encouraged to participate in group/unit activities. Will continue daily assessment and adjusting treatment as needed. Closely monitor behavior and response to medication during hospitalization. Results Of any Diagn. Testing REVIEW OF LABS WBC 5.4 RBC 4.72 HEMOGLOBIN 12.4 HEMATOCRIT 38.1 PLATELET COUNT 328 SODIUM 138 POTASSIUM 3.2 CHLORIDE 104 ANION GAP 8 BUN 7 CREATININE 0.78 CALCIUM 8.8 ALBUMIN 3.7 TSH 1.35 URINALYSIS NEGATIVE COVID NEGATIVE URINE TOX SCREEN NEGATIVE Appearnace: Disheveled (MALODOROUS. AVERAGE HEIGHT OBESE FEMALE. WEARING GREEN SCRUBS), Other Speech: Other (CIRCUMSTANTIAL) Eye Contact: Avoidant Motor Activity: Normal Affect: Flat Mood: Anxious Orientation Impairment: None Memory Impairment: None Attention: Normal Hallucinations: None Other: None Suicidality: None Homicidality: None Delusions: Paraniod Behavior: Paranoid Insight: Poor Judgment: Poor Treatment We will max Zyprexa out and monitor for a couple of days if no improvement we will add paliperidone. Increase ZYPREXA ZYDIS 20MG PO QHS Monitoring by Staff, Milieu, Group, and Individual counseling as needed -- Acc ording to the [place] Suicide Assessment the above named patient is on Q 15 MINUTE CHECKS. [id number]-The patient is unable to formulate a viable plan for food, clothing and fpc. We are still titrating medications to an effective dose while maintaining a therapeutic environment to prevent decompensation and readmission. REVIEW OF Clinical notes [X ] RN notes [X] PCT documentation [X] SW notes Labs [ X] Medications [X] Care trends/care activity [X] Vitals [X] DISCUSSION WITH records management coordinator [X] Staff SW [X] Treatment Team [X] Discharge UNSURE AT THIS TIME. DISCHARGE HOME ONCE STABLE. CODING VISIT-PSYCHIATRY Date of Service: Jul 16, 2024 Billing Provider: PARISH SMITH APRN Psych Common Visit Codes: [id number] INP/OBS CARE(Mod) Problem Qualifiers (1) Psychosis: Qualified Codes: F29 - Unspecified psychosis not due to a substance or known physiological condition PARISH SMITH APRN Jul 16, 2024 07:10
[2024-07-16 07:30] VITALS: RESP 14
[2024-07-16 11:15] LABS: POTASSIUM 4.3 MMOL/L (3.5-5.1)
[2024-07-16 14:38] LABS: CHOL/HDL RATIO 4.8 (0.00-4.99); CHOLESTEROL 198 MG/DL (0-200); HDL CHOLESTEROL 41 MG/DL (35-60); TRIGLYCERIDES 187 MG/DL (20-135)
[2024-07-16 14:42] LABS: LDL CHOLESTEROL 118 MG/DL (50-100)
[2024-07-16 18:53] VITALS: RESP 14
[2024-07-16] MEDS: magnesium hydroxide 30ml (MOM) UD suspension PO PRN (19:15)
[2024-07-16 19:37] VITALS: BP 95/54; PULSE 64; RESP 15; TEMP 98.3; O2SAT 96
[2024-07-16] MEDS: hydrOXYzine 25 MG tablet PO PRN (20:21)
[2024-07-16] MEDS: OLANZapine 5mg rapidly disint. tablet PO SCH (20:21)
--- NOTE | 2024-07-17 14:03 | PROGRESS NOTE ---
Progress Note Dictate Providers to CC ~ Central Line/PICC still needed: N\\A Antibiotic Ordered?: No MRSA Education MRSA Education Provided to pt: No Objective Vitals Vital Signs Date Time Temp Pulse Resp B/P (MAP) Pulse Ox O2 Delivery O2 Flow Rate FiO2 07/17/24 07:30 Room Air 07/16/24 19:37 98.3 64 15 95/54 (68) 96 Lab Results: 07/16/24 1037 Problem\\Assessment\\Plan Problems/Diagnosis: (1) Schizoaffective disorder (2) Psychosis (3) Paranoid delusion (4) Auditory hallucinations Psychiatrist's Progress Note Date of Service: Jul 17, 2024 Notes CHART REVIEW Client presents with paranoid and persecutory delusions including believes that is someone as locking her jaw, administrating medicines without her consent and that she has been follow. Client also believes the others are conspiring to cause her harm and are in agreement that she should by suicide. Additionally client reports experiencing auditory hallucinations, although was unable to provide could description of nature. Client may possibly be responding to internal stimuli as having. The what appeared to be property as speech. ASSESSMENT The patient is interviewed in observation room. The patient seen actively r esting in bed with eyes open. The patient endorses "I'm okay." The patient endorses no worsening mental health symptoms. Denies SI. Denies HI. Denies AVH. The patient endorses adequate sleep and food intake. The patient is stable no acute distress noted. The patient is paranoid, delusional and engaged during session. Per staff report no behavior issues. Per staff report patient is compliant with medication regimen. Per staff report patient got up and took a shower yesterday. The patient has shown some improvement since admission. Will continue daily assessment and adjusting treatment as needed. Closely monitor behavior and response to medication during hospitalization. Results Of any Diagn. Testing REVIEW OF LABS WBC 5.4 RBC 4.72 HEMOGLOBIN 12.4 HEMATOCRIT 38.1 PLATELET COUNT 328 SODIUM 138 POTASSIUM 3.2 CHLORIDE 104 ANION GAP 8 BUN 7 CREATININE 0.78 CALCIUM 8.8 ALBUMIN 3.7 TSH 1.35 URINALYSIS NEGATIVE COVID NEGATIVE URINE TOX SCREEN NEGATIVE Appearnace: Other (APPROPRIATE. AVERAGE HEIGHT OBESE FEMALE. WEARING GREEN SCRUBS) Speech: Impoverished Eye Contact: Other (INTERMITTENT) Motor Activity: Normal Affect: Constricted Hallucinations: None Other: None Suicidality: None Homicidality: None Delusions: None Behavior: Guarded Insight: Poor Judgment: Poor Treatment ZYPREXA ZYDIS 20MG PO QHS Monitoring by Staff, Milieu, Group, and Individual counseling as needed -- According to the [place] Suicide Assessment the above named patient is on Q 15 MINUTE CHECKS. [id number]-The patient is unable to formulate a viable plan for food, clothing and mcfp. We are still titrating medications to an effective dose while maintaining a therapeutic environment to prevent decompensation and readmission. REVIEW OF Clinical notes [X ] RN notes [X] PCT documentation [X] SW notes Labs [ X] Medications [X] Care trends/care activity [X] Vitals [X] DISCUSSION WITH pearler [X] Staff SW [X] Treatment Team [X] Discharge UNSURE AT THIS TIME. DISCHARGE HOME ONCE STABLE. CODING VISIT-PSYCHIATRY Date of Service: Jul 17, 2024 Billing Provider: PARISH SMITH APRN Psych Common Visit Codes: [id number] INP/OBS CARE(Mod) Problem Qualifiers (1) Psychosis: Qualified Codes: F29 - Unspecified psychosis not due to a substance or known physiological condition PARISH SMITH APRN Jul 17, 2024 14:03
--- NOTE | 2024-07-17 18:13 | PROGRESS NOTE ---
Daily Progress Note Providers to CC ~ Antibiotic Timeout Antibiotic Ordered?: No Subjective Patient was seen in presence of nursing staff from mental health. Patient refused for physical examination. As per nursing staff patient is also refused to eat her breakfast and lunch today. Objective Vital Signs Date Time Temp Pulse Resp B/P (MAP) Pulse Ox O2 Delivery O2 Flow Rate FiO2 07/17/24 07:30 Room Air 07/16/24 19:37 98.3 64 15 95/54 (68) 96 Result Diagram: 07/16/24 1037 General-patient not in any acute distress, Eyes-no icterus or pallor seen in eyes Extremity- able to move all 4 extremities Patient refused for physical examination Problem\Assessment\Plan schizoaffective disorder, psychosis, paranoid delusion and auditory hallucination -managed as per psychiatrist Hypokalemia Potassium 4.3 on 07/16/24 Continue monitoring. Constipation MiraLax ordered We will continue to follow from hospitalist team as needed or as per protocol. Further management of psychiatric issues as per psychiatric team Date of Service: Jul 17, 2024 Billing Provider: TIFFANIE DELGADO MD Common Visit Codes: [id number] INP/OBS CARE(LOW) TIFFANIE DELGADO MD Jul 17, 2024 18:13
[2024-07-17 20:00] VITALS: BP 91/79; PULSE 70; RESP 14; TEMP 97.1; O2SAT 98
[2024-07-17 23:05] VITALS: RESP 14; O2SAT 98
--- NOTE | 2024-07-18 06:44 | PROGRESS NOTE ---
Progress Note Dictate Providers to CC ~ Central Line/PICC still needed: N\\A Antibiotic Ordered?: No MRSA Education MRSA Education Provided to pt: No Objective Vitals Vital Signs Date Time Temp Pulse Resp B/P (MAP) Pulse Ox O2 Delivery O2 Flow Rate FiO2 07/17/24 23:05 14 98 Room Air 07/17/24 20:00 97.1 70 91/79 (83) Lab Results: 07/16/24 1037 Problem\\Assessment\\Plan Problems/Diagnosis: (1) Schizoaffective disorder (2) Psychosis (3) Paranoid delusion (4) Auditory hallucinations Psychiatrist's Progress Note Date of Service: Jul 18, 2024 Notes CHART REVIEW Client presents with paranoid and persecutory delusions including believes that is someone as locking her jaw, administrating medicines without her consent and that she has been follow. Client also believes the others are conspiring to cause her harm and are in agreement that she should by suicide. Additionally client reports experiencing auditory hallucinations, although was unable to provide could description of nature. Client may possibly be responding to internal stimuli as having. The what appeared to be property as speech. ASSESSMENT The patient is interviewed in observation room. The patient seen actively resting in bed with eyes open. The patient endorses "Okay." Patient endorses "I would like help getting a place but I am not gravely disabled." "Someone told me the only way I can get a place is if I am gravely disabled and I am not." The patient endorses "If I go out there people are going to start following me." Denies SI. Denies HI. Denies AVH. The patient endorses adequate sleep and food intake. The patient is stable no acute distress noted. The patient is paranoid, cooperative and engaged during session. Per staff report no behavior issues. Per staff report patient is compliant with medication regimen. Per staff report patient got up and took a shower yesterday. The patient has shown some improvement since admission. Will continue daily assessment and adjusting treatment as needed. Closely monitor behavior and response to medication during hospitalization. A Results Of any Diagn. Testing REVIEW OF LABS WBC 5.4 RBC 4.72 HEMOGLOBIN 12.4 HEMATOCRIT 38.1 PLATELET COUNT 328 SODIUM 138 POTASSIUM 3.2 CHLORIDE 104 ANION GAP 8 BUN 7 CREATININE 0.78 CALCIUM 8.8 ALBUMIN 3.7 TSH 1.35 URINALYSIS NEGATIVE COVID NEGATIVE URINE TOX SCREEN NEGATIVE Appearnace: Other Speech: Other (CIRCUMSTANTIAL) Eye Contact: Other (INTERMITTENT) Motor Activity: Normal Affect: Constricted Orientation Impairment: None Memory Impairment: None Attention: Normal Hallucinations: None Other: None Suicidality: None Homicidality: None Delusions: Paraniod Insight: Poor Judgment: Poor Treatment ZYPREXA ZYDIS 20MG PO QHS Monitoring by Staff, Milieu, Group, and Individual counseling as needed -- According to the [place] Suicide Assessment the above named patient is on Q 15 MINUTE CHECKS. [id number]-The patient is unable to formulate a viable plan for food, clothing and skilled nursing. We are still titrating medications to an effective dose while maintaining a therapeutic environment to prevent decompensation and readmission. REVIEW OF Clinical notes [X ] RN notes [X] PCT documentation [X] SW notes Labs [ X] Medications [X] Care trends/care activity [X] Vitals [X] DISCUSSION WITH client customer manager [X] Staff SW [X] Treatment Team [X] Discharge UNSURE AT THIS TIME. DISCHARGE HOME ONCE STABLE. CODING VISIT-PSYCHIATRY Date of Service: Jul 18, 2024 Billing Provider: PARISH SMITH APRN Psych Common Visit Codes: [id number] INP/OBS CARE(Mod) Problem Qualifiers (1) Psychosis: Qualified Codes: F29 - Unspecified psychosis not due to a substance or known physiological condition PARISH SMITH APRN Jul 18, 2024 06:44
[2024-07-18 07:00] VITALS: BP 91/52; PULSE 58; RESP 16; TEMP 97.9; O2SAT 95
[2024-07-18 19:00] VITALS: RESP 14; O2SAT 100
[2024-07-18 20:00] VITALS: BP 91/52; PULSE 77; RESP 14; TEMP 98.1; O2SAT 100
[2024-07-19 08:00] VITALS: RESP 16
--- NOTE | 2024-07-19 15:57 | PROGRESS NOTE ---
Progress Note Dictate Providers to CC ~ Central Line/PICC still needed: N\\A Antibiotic Ordered?: No MRSA Education MRSA Education Provided to pt: No Objective Vitals Vital Signs Date Time Temp Pulse Resp B/P (MAP) Pulse Ox O2 Delivery O2 Flow Rate FiO2 07/19/24 08:00 16 Room Air 07/18/24 20:00 98.1 77 91/52 (65) 100 Lab Results: 07/16/24 1037 Problem\\Assessment\\Plan Problems/Diagnosis: (1) Schizoaffective disorder (2) Psychosis (3) Paranoid delusion (4) Auditory hallucinations Psychiatrist's Progress Note Date of Service: Jul 19, 2024 Notes CHART REVIEW Client presents with paranoid and persecutory delusions including believes that is someone as locking her jaw, administrating medicines without her consent and that she has been follow. Client also believes the others are conspiring to cause her harm and are in agreement that she should by suicide. Additionally client reports experiencing auditory hallucinations, although was unable to provide could description of nature. Client may possibly be responding to internal stimuli as having. The what appeared to be property as speech. ASSESSMENT The patient is interviewed in observation room. The patient seen actively walking in hallway. The patient endorses "Okay." The patient endorses "I do not have a father or a son." The patient endorses "They are trying to trap me, like everyone else." Denies SI. Denies HI. Denies AVH. The patient endorses adequate sleep and food intake. The patient is stable no acute distress noted. The patient is paranoid, cooperative and engaged during session. Per staff report no behavior issues. Per staff report patient is compliant with medication regimen. The patient has shown some improvement since admission. Will continue daily assessment and adjusting treatment as needed. Closely monitor behavior and response to medication during hospitalization. Results Of any Diagn. Testing REVIEW OF LABS WBC 5.4 RBC 4.72 HEMOGLOBIN 12.4 HEMATOCRIT 38.1 PLATELET COUNT 328 SODIUM 138 POTASSIUM 3.2 CHLORIDE 104 ANION GAP 8 BUN 7 CREATININE 0.78 CALCIUM 8.8 ALBUMIN 3.7 TSH 1.35 URINALYSIS NEGATIVE COVID NEGATIVE URINE TOX SCREEN NEGATIVE Appearnace: Other Speech: Other (CIRCUMSTANTIAL) Eye Contact: Avoidant Motor Activity: Normal Affect: Constricted Orientation Impairment: Time Memory Impairment: None Attention: Normal Hallucinations: None Other: None Suicidality: None Homicidality: None Delusions: Paraniod Behavior: Agitated, Paranoid Insight: Poor Judgment: Poor Treatment ZYPREXA ZYDIS 20MG PO QHS Monitoring by Staff, Milieu, Group, and Individual counseling as needed -- According to the [place] Suicide Assessment the above named patient is on Q 15 MINUTE CHECKS. [id number] patient is unable to formulate a viable plan for food, clothing and group home. We are still titrating medications to an effective dose while maintaining a therapeutic environment to prevent decompensation and readmission. REVIEW OF Clinical notes [X ] RN notes [X] PCT documentation [X] SW notes Labs [ X] Medications [X] Care trends/care activity [X] Vitals [X] DISCUSSION WITH surgical coder [X] Staff SW [X] Treatment Team [X] Discharge UNSURE AT THIS TIME. DISCHARGE HOME ONCE STABLE. CODING VISIT-PSYCHIATRY Date of Service: Jul 19, 2024 Billing Provider: PARISH SMITH APRN Psych Common Visit Codes: [id number] INP/OBS CARE(Mod) Problem Qualifiers (1) Psychosis: Qualified Codes: F29 - Unspecified psychosis not due to a substance or known physiological condition PARISH SMITH APRN Jul 19, 2024 15:57
--- NOTE | 2024-07-19 18:21 | PROGRESS NOTE ---
Daily Progress Note Providers to CC ~ Antibiotic Timeout Antibiotic Ordered?: No Subjective This is the hospitalist progress note on patients hospitalized at [facility]. The patient appears to be hyper focused on the bruises she has not her forearms she states these occurred while being hospitalized and attributes them to when she had her blood drawn and that this was intentional I tried to informed the patient that often and takes multiple tries to obtain blood an that she may has been a difficult stick. The patient was rather upset and wanted this reported the patient refused to allow me to examine her today. Objective Vital Signs Date Time Temp Pulse Resp B/P (MAP) Pulse Ox O2 Delivery O2 Flow Rate FiO2 07/19/24 08:00 16 Room Air 07/18/24 20:00 98.1 77 91/52 (65) 100 Result Diagram: 07/16/24 1037 Gen no acute distress however appears upset Respiratory- no respiratory distress or tachypnea present Neurologic no focal deficits appreciated patient was able to move all extremities without any limitations present Skin bilateral forearms there was ecchymosis in his circular pattern present mid forearm this is approximately 4 cm in diameter on the right upper extremity and 3-1/2 cm in diameter on the left Problem\Assessment\Plan schizoaffective disorder, psychosis, paranoid delusion and auditory hallucination -managed as per psychiatrist Hypokalemia Potassium 4.3 on 07/16/24 Continue monitoring. Constipation MiraLax ordered Forearm ecchymosis At site phlebotomy draw-non concerning- anticipate resolution in the next couple of weeks The Hospitalist team will continue to follow the patient Date of Service: Jul 19, 2024 Billing Provider: MARLYS SCHMIDT DO Common Visit Codes: [id number] INP/OBS CARE(LOW) MARLYS SCHMIDT DO Jul 19, 2024 18:21
[2024-07-19 19:00] VITALS: RESP 20
[2024-07-19 20:30] VITALS: BP 129/84; PULSE 76; RESP 16; TEMP 98; O2SAT 95
[2024-07-19 23:47] VITALS: RESP 20
[2024-07-20 07:58] VITALS: RESP 16
[2024-07-20 08:00] VITALS: RESP 18
--- NOTE | 2024-07-20 12:55 | PROGRESS NOTE ---
Progress Note Dictate Providers to CC ~ Central Line/PICC still needed: N\\A Antibiotic Ordered?: No MRSA Education MRSA Education Provided to pt: No Objective Vitals Vital Signs Date Time Temp Pulse Resp B/P (MAP) Pulse Ox O2 Delivery O2 Flow Rate FiO2 07/20/24 07:58 16 07/19/24 20:30 98.0 76 129/84 (99) 95 Room Air Lab Results: 07/16/24 1037 Problem\\Assessment\\Plan Problems/Diagnosis: (1) Schizoaffective disorder (2) Psychosis (3) Paranoid delusion (4) Auditory hallucinations Psychiatrist's Progress Note Date of Service: Jul 20, 2024 Notes CHART REVIEW Client presents with paranoid and persecutory delusions including believes that is someone as locking her jaw, administrating medicines without her consent and that she has been follow. Client also believes the others are conspiring to cause her harm and are in agreement that she should by suicide. Additionally client reports experiencing auditory hallucinations, although was unable to provide could description of nature. Client may possibly be responding to internal stimuli as having. The what appeared to be property as speech. ASSESSMENT The patient is interviewed in observation room. The patient seen actively walking in hallway. The patient endorses "Good." The patient endorses "I wan to go to the [facility]; my pediatric social worker told me I can go." The patient endorses no worsening mental health symptoms. Denies SI. Denies HI. Denies AVH. The patient endorses adequate sleep and food intake. The patient is stable no acute distress noted. The patient is calm, cooperative and engaged during session. The patient was more conversational. The patient was smiling and laughing during session. Per staff report no behavior issues. Per staff report patient is compliant with medication regimen. The patient has shown moderate improvement since admission. Will continue daily assessment and adjusting treatment as needed. Closely monitor behavior and response to medication during hospitalization. Results Of any Diagn. Testing REVIEW OF LABS WBC 5.4 RBC 4.72 HEMOGLOBIN 12.4 HEMATOCRIT 38.1 PLATELET COUNT 328 SODIUM 138 POTASSIUM 3.2 CHLORIDE 104 ANION GAP 8 BUN 7 CREATININE 0.78 CALCIUM 8.8 ALBUMIN 3.7 TSH 1.35 URINALYSIS NEGATIVE COVID NEGATIVE URINE TOX SCREEN NEGATIVE Appearnace: Other Speech: Other (CIRCUMSTANTIAL) Eye Contact: Other (INTERMITTENT) Motor Activity: Normal Affect: Full Attention: Normal Hallucinations: None Other: None Suicidality: None Homicidality: None Delusions: None Behavior: Cooperative Insight: Poor Judgment: Poor Treatment ZYPREXA ZYDIS 20MG PO QHS Monitoring by Staff, Milieu, Group, and Individual counseling as needed -- According to the [place] Suicide Assessment the above named patient is on Q 15 MINUTE CHECKS. [id number]-The patient is unable to formulate a viable plan for food, clothing and care home. We are still titrating medications to an effective dose while maintaining a therapeutic environment to prevent decompensation and readmission. REVIEW OF Clinical notes [X ] RN notes [X] PCT documentation [X] SW notes Labs [ X] Medications [X] Care trends/care activity [X] Vitals [X] DISCUSSION WITH bridal gown fitter [X] Staff SW [X] Treatment Team [X] Discharge UNSURE AT THIS TIME. DISCHARGE HOME ONCE STABLE. CODING VISIT-PSYCHIATRY Date of Service: Jul 20, 2024 Billing Provider: PARISH SMITH APRN Psych Common Visit Codes: [id number] INP/OBS CARE(Mod) Problem Qualifiers (1) Psychosis: Qualified Codes: F29 - Unspecified psychosis not due to a substance or known physiological condition PARISH SMITH APRN Jul 20, 2024 12:55
[2024-07-20 19:00] VITALS: RESP 18
[2024-07-20 20:00] VITALS: RESP 18
[2024-07-21 08:00] VITALS: RESP 18
--- NOTE | 2024-07-21 14:14 | PROGRESS NOTE ---
Progress Note Dictate Providers to CC ~ Central Line/PICC still needed: N\\A Antibiotic Ordered?: No MRSA Education MRSA Education Provided to pt: No Objective Vitals Vital Signs Date Time Temp Pulse Resp B/P (MAP) Pulse Ox O2 Delivery O2 Flow Rate FiO2 07/21/24 08:00 18 Room Air 07/19/24 20:30 98.0 76 129/84 (99) 95 Problem\\Assessment\\Plan Problems/Diagnosis: (1) Schizoaffective disorder (2) Psychosis (3) Paranoid delusion (4) Auditory hallucinations Psychiatrist's Progress Note Date of Service: Jul 21, 2024 Notes CHART REVIEW Client presents with paranoid and persecutory delusions including believes that is someone as locking her jaw, administrating medicines without her consent and that she has been follow. Client also believes the others are conspiring to cause her harm and are in agreement that she should by suicide. Additionally client reports experiencing auditory hallucinations, although was unable to provide could description of nature. Client may possibly be resp onding to internal stimuli as having. The what appeared to be property as speech. ASSESSMENT The patient is interviewed in observation room. The patient seen actively walking in hallway. The patient endorses "alright." The patient endorses "I was brought here as a set up from my family and friends." "You know I have a bug in my throat to eat slowly and sometimes when I eat especially when I drink milk and makes me sick and I have to go throw up." "The bug was put there by someone very powerful in the only way for me to get rid of it is if I kill myself." The patient endorses no plan. "Look at my skin it it been in up by the radiation from the microwaves." Denies HI. Denies AVH. The patient endorses adequate sleep and food intake. The patient is stable no acute distress noted. The patient is paranoid, liable, cooperative and engaged during session. The patient became tearful during session when she talked about being set up by her family and friends. Per SW note the patient attended group today. Per staff report no behavior issues. Per staff report patient is compliant with medication regimen. Despite the patient expressing paranoia, being labile, today she has shown moderate improvement since admission. Patient noted to be out of room engaging with peers and staff more. Will continue daily assessment and adjusting treatment as needed. Closely monitor behavior and response to medication during hospitalization. Results Of any Diagn. Testing REVIEW OF LABS WBC 5.4 RBC 4.72 HEMOGLOBIN 12.4 HEMATOCRIT 38.1 PLATELET COUNT 328 SODIUM 138 POTASSIUM 3.2 CHLORIDE 104 ANION GAP 8 BUN 7 CREATININE 0.78 CALCIUM 8.8 ALBUMIN 3.7 TSH 1.35 URINALYSIS NEGATIVE COVID NEGATIVE URINE TOX SCREEN NEGATIVE Appearnace: Other Speech: Tangential, Other (CIRCUMSTANTIAL) Eye Contact: Avoidant Motor Activity: Normal Affect: Labile Mood: Anxious, Depressed Orientation Impairment: None Memory Impairment: None Attention: Normal Hallucinations: None Other: None Suicidality: Ideation Homicidality: None Delusions: Paraniod, Other Behavior: Cooperative Insight: Poor Judgment: Poor Treatment ZYPREXA ZYDIS 20MG PO QHS Initiate RISPERDONE 2MG PO DAILY Monitoring by Staff, Milieu, Group, and Individual counseling as needed -- Acco rding to the [place] Suicide Assessment the above named patient is on Q 15 MINUTE CHECKS. [id number]-The patient is unable to formulate a viable plan for food, clothing and fdc. We are still titrating medications to an effective dose while maintaining a therapeutic environment to prevent decompensation and readmission. REVIEW OF Clinical notes [X ] RN notes [X] PCT documentation [X] SW notes Labs [ X] Medications [X] Care trends/care activity [X] Vitals [X] DISCUSSION WITH back pad inspector [X] Staff SW [X] Treatment Team [X] Discharge UNSURE AT THIS TIME. DISCHARGE HOME ONCE STABLE. CODING VISIT-PSYCHIATRY Date of Service: Jul 21, 2024 Billing Provider: PARISH SMITH APRN Psych Common Visit Codes: [id number] INP/OBS CARE(Mod) Problem Qualifiers (1) Psychosis: Qualified Codes: F29 - Unspecified psychosis not due to a substance or known physiological condition PARISH SMITH APRN Jul 21, 2024 14:14
--- NOTE | 2024-07-21 18:56 | PROGRESS NOTE ---
Daily Progress Note Providers to CC ~ Antibiotic Timeout Antibiotic Ordered?: No Subjective Patient was seen in presence of nursing staff from [facility]. Node me to examine her and cooperated during physical exam. Objective Vital Signs Date Time Temp Pulse Resp B/P (MAP) Pulse Ox O2 Delivery O2 Flow Rate FiO2 07/21/24 08:00 18 Room Air 07/19/24 20:30 98.0 76 129/84 (99) 95 General-patient not in any acute distress, awake chronically ill-appearing, looks comfortable HEENT-atraumatic normocephalic, neck supple without elevated JVD, no thyromegaly or carotid bruit. No lymphadenopathy bilaterally. Eyes-no icterus or pallor seen in eyes Chest-clear to auscultation bilaterally, breathing nonlabored no tachypnea, no wheezing, no crepitation, no crackles. Heart-S1-S2 normal, regular heart rate no murmur Abdomen bowel sounds positive on auscultation, soft nondistended nontender no guarding, no rigidity Skin no active skin rash Neurology-grossly intact, nonfocal awake cooperated during physical examination Extremity- no pedal edema able to move all 4 extremities, ambulates Problem\Assessment\Plan schizoaffective disorder, psychosis, paranoid delusion and auditory hallucination -managed as per psychiatrist Hypokalemia Potassium 4.3 on 07/16/24 Continue monitoring. Constipation MiraLax ordered The Hospitalist team will continue to follow the patient Date of Service: Jul 21, 2024 Billing Provider: TIFFANIE DELGADO MD Common Visit Codes: [id number] INP/OBS CARE(LOW) TIFFANIE DELGADO MD Jul 21, 2024 18:56
[2024-07-21 19:00] VITALS: RESP 16; O2SAT 98
[2024-07-21 20:00] VITALS: BP 92/53; PULSE 73; RESP 16; TEMP 97.4; O2SAT 98
[2024-07-22] MEDS: risperiDONE 2mg tablet PO SCH ×2 (07:14→20:27)
[2024-07-22 07:30] VITALS: BP 96/53; PULSE 73; RESP 15; TEMP 97.9; O2SAT 98
--- NOTE | 2024-07-22 08:26 | PROGRESS NOTE ---
Progress Note Dictate Providers to CC ~ Central Line/PICC still needed: N\\A Antibiotic Ordered?: No MRSA Education MRSA Education Provided to pt: No Objective Vitals Vital Signs Date Time Temp Pulse Resp B/P (MAP) Pulse Ox O2 Delivery O2 Flow Rate FiO2 07/22/24 07:30 97.9 73 15 96/53 (67) 98 Room Air Problem\\Assessment\\Plan Problems/Diagnosis: (1) Schizoaffective disorder (2) Psychosis (3) Paranoid delusion (4) Auditory hallucinations Psychiatrist's Progress Note Date of Service: Jul 22, 2024 Notes CHART REVIEW Client presents with paranoid and persecutory delusions including believes that is someone as locking her jaw, administrating medicines without her consent and that she has been follow. Client also believes the others are conspiring to cause her harm and are in agreement that she should by suicide. Additionally client reports experiencing auditory hallucinations, although was unable to provide could description of nature. Client may possibly be responding to internal stimuli as having. The what appeared to be property as speech. ASSESSMENT The patient is interviewed in observation room. The patient seen actively walking in hallway. The patient endorses "Okay." The patient endorses she would like to change her insurance to [facility] so that she can be referred to [facility]. The patient endorses "they may have put the microchip in my body when I had surgery on the foot." They patient endorses "I am telling you the truth; I cant really explain it." "I hear a buzzing sound." Denies SI. Denies HI. Denies AVH. The patient endorses adequate sleep and food intake. The patient is stable no acute distress noted. The patient is delusional, calm, cooperative and engaged during session. Per staff report no behavior issues. Per staff report patient is compliant with medication regimen. Patient noted to be out of room engaging with peers and staff more. Will continue daily assessment and adjusting treatment as needed. Closely monitor behavior and response to medication during hospitalization. Results Of any Diagn. Testing REVIEW OF LABS WBC 5.4 RBC 4.72 HEMOGLOBIN 12.4 HEMATOCRIT 38.1 PLATELET COUNT 328 SODIUM 138 POTASSIUM 3.2 CHLORIDE 104 ANION GAP 8 BUN 7 CREATININE 0.78 CALCIUM 8.8 ALBUMIN 3.7 TSH 1.35 URINALYSIS NEGATIVE COVID NEGATIVE URINE TOX SCREEN NEGATIVE Appearnace: Other Speech: Other (CIRCUMSTANTIAL) Eye Contact: Normal Motor Activity: Normal Affect: Full Orientation Impairment: None Memory Impairment: None Attention: Normal Hallucinations: None Other: None Suicidality: None Homicidality: None Delusions: Other Behavior: Cooperative Insight: Fair Judgment: Poor Treatment ZYPREXA ZYDIS 20MG PO QHS RISPERDONE 2MG PO QHS Monitoring by Staff, Milieu, Group, and Individual counseling as needed -- According to the [place] Suicide Assessment the above named patient is on Q 15 MINUTE CHECKS. [id number]-The patient is unable to formulate a viable plan for food, clothing and long term. We are still titrating medications to an effective dose while maintaining a therapeutic environment to prevent decompensation and readmission. REVIEW OF Clinical notes [X ] RN notes [X] PCT documentation [X] SW notes Labs [ X] Medications [X] Care trends/care activity [X] Vitals [X] DISCUSSION WITH detective bureau chief [X] Staff SW [X] Treatment Team [X] Discharge UNSURE AT THIS TIME. DISCHARGE HOME ONCE STABLE. CODING VISIT-PSYCHIATRY Date of Service: Jul 22, 2024 Billing Provider: PARISH SMITH APRN Psych Common Visit Codes: [id number] INP/OBS CARE(Mod) Problem Qualifiers (1) Psychosis: Qualified Codes: F29 - Unspecified psychosis not due to a substance or known physiological condition PARISH SMITH APRN Jul 22, 2024 08:25
[2024-07-22 18:41] VITALS: RESP 15; O2SAT 98
[2024-07-22 20:23] VITALS: BP 107/61; PULSE 89; RESP 16; TEMP 98.6; O2SAT 98
--- NOTE | 2024-07-23 13:28 | PROGRESS NOTE ---
Progress Note Dictate Providers to CC ~ Central Line/PICC still needed: N\\A Antibiotic Ordered?: No MRSA Education MRSA Education Provided to pt: No Objective Vitals Vital Signs Date Time Temp Pulse Resp B/P (MAP) Pulse Ox O2 Delivery O2 Flow Rate FiO2 07/22/24 20:23 98.6 89 16 107/61 (76) 98 Room Air Problem\\Assessment\\Plan Problems/Diagnosis: (1) Schizoaffective disorder (2) Psychosis (3) Paranoid delusion (4) Auditory hallucinations Psychiatrist's Progress Note Date of Service: Jul 23, 2024 Notes CHART REVIEW Client presents with paranoid and persecutory delusions including believes that is someone as locking her jaw, administrating medicines without her consent and that she has been follow. Client also believes the others are conspiring to cause her harm and are in agreement that she should by suicide. Additionally client reports experiencing auditory hallucinations, although was unable to provide could description of nature. Client may possibly be responding to internal stimuli as having. The what appeared to be property as speech. ASSESSMENT The patient is interviewed in observation room. The patient seen actively walking in hallway. The patient endorses "Okay." "I just came from taking a shower and it felt really good." When patient was asked if she still here the buzzing sound. The patient endorses "wait" she closed her eyes and asked for it to be quit and then she opened her eyes and endorses "a little bit it is not as loud." "Denies SI. Denies HI. Denies VH. The patient endorses adequate sleep and food intake. The patient is stable no acute distress noted. The patient is calm, cooperative and engaged during session. Per staff report no behavior issues. Per staff report patient is compliant with medication regimen. Patient noted to be out of room engaging with peers and staff more. Will continue daily assessment and adjusting treatment as needed. Closely monitor behavior and response to medication during hospitalization. Results Of any Diagn. Testing REVIEW OF LABS WBC 5.4 RBC 4.72 HEMOGLOBIN 12.4 HEMATOCRIT 38.1 PLATELET COUNT 328 SODIUM 138 POTASSIUM 3.2 CHLORIDE 104 ANION GAP 8 BUN 7 CREATININE 0.78 CALCIUM 8.8 ALBUMIN 3.7 TSH 1.35 URINALYSIS NEGATIVE COVID NEGATIVE URINE TOX SCREEN NEGATIVE Appearnace: Other Speech: Other (CIRCUMSTANTIAL) Eye Contact: Normal Motor Activity: Normal Affect: Full Orientation Impairment: None Memory Impairment: None Attention: Normal Hallucinations: Auditory Other: None Suicidality: None Homicidality: None Delusions: None Behavior: Cooperative Insight: Fair, Poor Judgment: Fair, Poor Treatment ZYPREXA ZYDIS 20MG PO QHS RISPERDONE 2MG PO QHS Monitoring by Staff, Milieu, Group, and Individual counseling as needed -- According to the [place] Suicide Assessment the above named patient is on Q 15 MINUTE CHECKS. [id number]-The patient is unable to formulate a viable plan for food, clothing and fpc. We are still titrating medications to an effective dose while maintaining a therapeutic environment to prevent decompensation and readmission. REVIEW OF Clinical notes [X ] RN notes [X] PCT documentation [X] SW notes Labs [ X] Medications [X] Care trends/care activity [X] Vitals [X] DISCUSSION WITH farmworker cranberry [X] Staff SW [X] Treatment Team [X] Discharge UNSURE AT THIS TIME. DISCHARGE HOME ONCE STABLE. CODING VISIT-PSYCHIATRY Date of Service: Jul 23, 2024 Billing Provider: PARISH SMITH APRN Psych Common Visit Codes: [id number] INP/OBS CARE(Mod) Problem Qualifiers (1) Psychosis: Qualified Codes: F29 - Unspecified psychosis not due to a substance or known physiological condition PARISH SMITH APRN Jul 23, 2024 13:28
--- NOTE | 2024-07-23 19:24 | PROGRESS NOTE ---
Daily Progress Note Providers to CC ~ Antibiotic Timeout Antibiotic Ordered?: No Subjective Was seen in presence of mental health staff she allowed me to examine her but did not spoke much Objective Vital Signs Date Time Temp Pulse Resp B/P (MAP) Pulse Ox O2 Delivery O2 Flow Rate FiO2 07/22/24 20:23 98.6 89 16 107/61 (76) 98 Room Air General-patient not in any acute distress, awake chronically ill-appearing, looks comfortable HEENT-atraumatic normocephalic, neck supple without elevated JVD, no thyromegaly or carotid bruit. No lymphadenopathy bilaterally. Eyes-no icterus or pallor seen in eyes Chest-clear to auscultation bilaterally, breathing nonlabored no tachypnea, no wheezing, no crepitation, no crackles. Heart-S1-S2 normal, regular heart rate no murmur Abdomen bowel sounds positive on auscultation, soft nondistended nontender no guarding, no rigidity Skin no active skin rash Neurology-grossly intact, nonfocal awake cooperated during physical examination Extremity- no pedal edema able to move all 4 extremities, ambulates Problem\Assessment\Plan schizoaffective disorder, psychosis, paranoid delusion and auditory hallucination -managed as per psychiatrist Hypokalemia Potassium 4.3 on 07/16/24 Continue monitoring. Constipation MiraLax ordered The Hospitalist team will continue to follow the patient Date of Service: Jul 23, 2024 Billing Provider: TIFFANIE DELGADO MD Common Visit Codes: [id number] INP/OBS CARE(LOW) TIFFANIE DELGADO MD Jul 23, 2024 19:24
[2024-07-23 19:44] VITALS: BP 113/65; PULSE 75; RESP 16; TEMP 98.3; O2SAT 98
[2024-07-23 20:00] VITALS: RESP 16; O2SAT 98
[2024-07-24 07:30] VITALS: BP 102/48; PULSE 54; RESP 13; TEMP 96.8; O2SAT 96
--- NOTE | 2024-07-24 12:50 | PROGRESS NOTE ---
Progress Note Dictate Providers to CC ~ Central Line/PICC still needed: N\\A Antibiotic Ordered?: No MRSA Education MRSA Education Provided to pt: No Objective Vitals Vital Signs Date Time Temp Pulse Resp B/P (MAP) Pulse Ox O2 Delivery O2 Flow Rate FiO2 07/24/24 07:30 Room Air 07/24/24 07:30 96.8 54 13 102/48 (66) 96 Problem\\Assessment\\Plan Problems/Diagnosis: (1) Schizoaffective disorder (2) Psychosis (3) Paranoid delusion (4) Auditory hallucinations Psychiatrist's Progress Note Date of Service: Jul 24, 2024 Notes CHART REVIEW Client presents with paranoid and persecutory delusions including believes that is someone as locking her jaw, administrating medicines without her consent and that she has been follow. Client also believes the others are conspiring to cause her harm and are in agreement that she should by suicide. Additionally client reports experiencing auditory hallucinations, although was unable to provide could description of nature. Client may possibly be resp onding to internal stimuli as having. The what appeared to be property as speech. ASSESSMENT The patient is interviewed in observation room. The patient seen actively walking in hallway. The patient endorses "Okay." Patient endorses no worsening mental health symptoms. "Denies SI. Denies HI. Denies AVH. The patient endorses adequate sleep and food intake. The patient is stable no acute distress noted. The patient is calm, cooperative and engaged during session. Per staff report no behavior issues. Per staff report patient is compliant with medication regimen. Patient noted to be out of room engaging with peers and staff more. Will continue daily assessment and adjusting treatment as needed. Closely monitor behavior and response to medication during hospitalization. Results Of any Diagn. Testing REVIEW OF LABS WBC 5.4 RBC 4.72 HEMOGLOBIN 12.4 HEMATOCRIT 38.1 PLATELET COUNT 328 SODIUM 138 POTASSIUM 3.2 CHLORIDE 104 ANION GAP 8 BUN 7 CREATININE 0.78 CALCIUM 8.8 ALBUMIN 3.7 TSH 1.35 URINALYSIS NEGATIVE COVID NEGATIVE URINE TOX SCREEN NEGATIVE Appearnace: Other Speech: Other (CIRCUMSTANTIAL) Eye Contact: Normal Motor Activity: Normal Affect: Full Mood: Euthymic Orientation Impairment: None Memory Impairment: None Attention: Normal Hallucinations: None Other: None Suicidality: None Homicidality: None Delusions: None Behavior: Cooperative Insight: Fair, Poor Judgment: Fair, Poor Treatment ZYPREXA ZYDIS 20MG PO QHS RISPERDONE 2MG PO QHS Monitoring by Staff, Milieu, Group, and Individual counseling as needed -- According to the [place] Suicide Assessment the above named patient is on Q 15 MINUTE CHECKS. [id number]-The patient is unable to formulate a viable plan for food, clothing and assisted. We are still titrating medications to an effective dose while maintaining a therapeutic environment to prevent decompensation and readmission. REVIEW OF Clinical notes [X ] RN notes [X] PCT documentation [X] SW notes Labs [ X] Medications [X] Care trends/care activity [X] Vitals [X] DISCUSSION WITH photo mask inspector [X] Staff SW [X] Treatment Team [X] Discharge UNSURE AT THIS TIME. DISCHARGE HOME ONCE STABLE. CODING VISIT-PSYCHIATRY Date of Service: Jul 24, 2024 Billing Provider: PARISH SMITH APRN Psych Common Visit Codes: [id number] INP/OBS CARE(Mod) Problem Qualifiers (1) Psychosis: Qualified Codes: F29 - Unspecified psychosis not due to a substance or known physiological condition PARISH SMITH APRN Jul 24, 2024 12:50
[2024-07-24 20:00] VITALS: BP 110/79; PULSE 87; RESP 18; TEMP 97; O2SAT 100
[2024-07-24 20:57] VITALS: RESP 18; O2SAT 100
[2024-07-25 07:54] VITALS: BP 100/54; PULSE 61; RESP 16; TEMP 97.9; O2SAT 97
--- NOTE | 2024-07-25 12:22 | PROGRESS NOTE ---
Progress Note Dictate Providers to CC ~ Central Line/PICC still needed: N\\A Antibiotic Ordered?: No MRSA Education MRSA Education Provided to pt: No Objective Vitals Vital Signs Date Time Temp Pulse Resp B/P (MAP) Pulse Ox O2 Delivery O2 Flow Rate FiO2 07/25/24 07:54 97.9 61 16 100/54 (69) 97 Room Air Problem\\Assessment\\Plan Problems/Diagnosis: (1) Schizoaffective disorder (2) Psychosis (3) Paranoid delusion (4) Auditory hallucinations Psychiatrist's Progress Note Date of Service: Jul 25, 2024 Notes CHART REVIEW Client presents with paranoid and persecutory delusions including believes that is someone as locking her jaw, administrating medicines without her consent and that she has been follow. Client also believes the others are conspiring to cause her harm and are in agreement that she should by suicide. Additionally client reports experiencing auditory hallucinations, although was unable to provide could description of nature. Client may possibly be responding to internal stimuli as having. The what appeared to be property as speech. ASSESSMENT The patient is interviewed in observation room. The patient seen actively resting in bed with eyes open. The patient endorses "I am doing alright." Patient endorses no worsening mental health symptoms. Denies SI. Denies HI. Denies AVH. The patient endorses adequate sleep and food intake. The patient is stable no acute distress noted. The patient is calm, cooperative and engaged during session. Per staff report no behavior issues. Per staff report patient is compliant with medication regimen. Patient noted to be out of room engaging with peers and staff more. Will continue daily assessment and adjusting treatment as needed. Closely monitor behavior and response to medication during hospitalization. Results Of any Diagn. Testing REVIEW OF LABS WBC 5.4 RBC 4.72 HEMOGLOBIN 12.4 HEMATOCRIT 38.1 PLATELET COUNT 328 SODIUM 138 POTASSIUM 3.2 CHLORIDE 104 ANION GAP 8 BUN 7 CREATININE 0.78 CALCIUM 8.8 ALBUMIN 3.7 TSH 1.35 URINALYSIS NEGATIVE COVID NEGATIVE URINE TOX SCREEN NEGATIVE Appearnace: Other Speech: Other (CIRCUMSTANTIAL) Eye Contact: Other (Intermittent) Motor Activity: Normal Affect: Full Orientation Impairment: None Memory Impairment: None Attention: Normal Hallucinations: None Other: None Suicidality: None Homicidality: None Delusions: None Behavior: Cooperative Insight: Fair, Poor Judgment: Fair, Poor Treatment ZYPREXAmeena AMADOR 20MG PO QHS RISPERDONE 2MG PO QHS Monitoring by Staff, Milieu, Group, and Individual counseling as needed -- According to the [place] Suicide Assessment the above named patient is on Q 15 MINUTE CHECKS. VOLUNTARY REVIEW OF Clinical notes [X ] RN notes [X] PCT documentation [X] SW notes Labs [ X] Medications [X] Care trends/care activity [X] Vitals [X] DISCUSSION WITH pomology teacher [X] Staff SW [X] Treatment Team [X] Discharge UNSURE AT THIS TIME. DISCHARGE HOME ONCE STABLE. CODING VISIT-PSYCHIATRY Date of Service: Jul 25, 2024 Billing Provider: PARISH SMITH APRN Psych Common Visit Codes: [id number] INP/OBS CARE(Low) Problem Qualifiers (1) Psychosis: Qualified Codes: F29 - Unspecified psychosis not due to a substance or known physiological condition PARISH SMITH APRN Jul 25, 2024 12:22
--- NOTE | 2024-07-25 16:44 | PROGRESS NOTE ---
Daily Progress Note Providers to CC ~ Antibiotic Timeout Antibiotic Ordered?: No Subjective This is the hospitalist progress note on patients hospitalized at [facility]. The patient complains of difficulty swallowing every couple of days she does state she wakes up with a sour taste in her mouth and does have reflux. The patient is resistant to starting medications when we talked at a further length it appears that the patient does not want to take this rectangular shaped pill it get stuck in his throat. The patient's RN Shantell informs me the patient had a bedside swallow eval and speech therapy stated that there was no mechanical obstruction and recommended a regular diet. The patient is states that her psychiatric medications causes her to go to the bathroom when I asked her further questions it appears that it causes her to have frequent urination and she was concerned she may have a urinary tract infection. Objective Vital Signs Date Time Temp Pulse Resp B/P (MAP) Pulse Ox O2 Delivery O2 Flow Rate FiO2 07/25/24 07:54 97.9 61 16 100/54 (69) 97 Room Air Gen no acute distress however appears upset Respiratory- no respiratory distress or tachypnea present Neurologic no focal deficits appreciated patient was able to move all extremities without any limitations present Skin bilateral forearms there was ecchymosis in his circular pattern present mid forearm this is approximately 4 cm in diameter on the right upper extremity and 3-1/2 cm in diameter on the left (note ecchymosis has since resolved) Problem\Assessment\Plan schizoaffective disorder, psychosis, paranoid delusion and auditory hallucination -managed as per psychiatrist Hypokalemia Potassium 4.3 on 07/16/24 Continue monitoring. Constipation MiraLax ordered Dysphagia/odynophagia Consistent to acid reflux- Recommended elevating the head of the bed when sleeping, avoid carbonated beverages and caffeinated beverages Start Protonix 40 mg p.o. daily Start p.r.n. Tums chew tabs Frequent urination Likely side-effect from psychiatric medication Urinalysis and culture if indicated The Hospitalist team will continue to follow the patient Date of Service: Jul 25, 2024 Billing Provider: MARLYS SCHMIDT DO Common Visit Codes: [id number] INP/OBS CARE(MOD) MARLYS SCHMIDT DO Jul 25, 2024 16:44
[2024-07-25] MEDS: calcium carbonate 500mg chew tablet PO SCH (17:40)
[2024-07-25 20:00] VITALS: BP 121/67; PULSE 85; RESP 16; TEMP 98.2; O2SAT 96
[2024-07-25 21:30] VITALS: RESP 16; O2SAT 96
[2024-07-26 07:00] VITALS: RESP 20; O2SAT 98
[2024-07-26] MEDS: pantoprazole 40mg Tablet.DR PO SCH (07:37)
[2024-07-26 08:00] VITALS: BP 91/49; PULSE 62; RESP 20; TEMP 97; O2SAT 98
--- NOTE | 2024-07-26 14:36 | PROGRESS NOTE ---
Progress Note Dictate Providers to CC ~ Central Line/PICC still needed: N\\A Antibiotic Ordered?: No MRSA Education MRSA Education Provided to pt: No Objective Vitals Vital Signs Date Time Temp Pulse Resp B/P (MAP) Pulse Ox O2 Delivery O2 Flow Rate FiO2 07/26/24 08:00 97.0 62 20 91/49 (63) 98 Room Air Problem\\Assessment\\Plan Problems/Diagnosis: (1) Schizoaffective disorder (2) Psychosis (3) Paranoid delusion (4) Auditory hallucinations Psychiatrist's Progress Note Date of Service: Jul 26, 2024 Notes CHART REVIEW Client presents with paranoid and persecutory delusions including believes that is someone as locking her jaw, administrating medicines without her consent and that she has been follow. Client also believes the others are conspiring to cause her harm and are in agreement that she should by suicide. Additionally client reports experiencing auditory hallucinations, although was unable to provide could description of nature. Client may possibly be responding to internal stimuli as having. The what appeared to be property as speech. ASSESSMENT The patient is interviewed in observation room. The patient seen actively walking in hallway. The patient endorses "Alright." Patient endorses no worsening mental health symptoms. Denies SI. Denies HI. Denies AVH. The patient endorses adequate sleep and food intake. The patient is stable no acute distress noted. The patient is calm, cooperative and engaged during session. Per staff report no behavior issues. Per staff report patient is compliant with medication regimen. Patient noted to be out of room engaging with peers and staff more. Will continue daily assessment and adjusting treatment as needed. Closely monitor behavior and response to medication during hospitalization. Results Of any Diagn. Testing REVIEW OF LABS WBC 5.4 RBC 4.72 HEMOGLOBIN 12.4 HEMATOCRIT 38.1 PLATELET COUNT 328 SODIUM 138 POTASSIUM 3.2 CHLORIDE 104 ANION GAP 8 BUN 7 CREATININE 0.78 CALCIUM 8.8 ALBUMIN 3.7 TSH 1.35 URINALYSIS NEGATIVE COVID NEGATIVE URINE TOX SCREEN NEGATIVE Appearnace: Other Speech: Other (CIRCUMSTANTIAL) Eye Contact: Other (INTERMITTENT) Motor Activity: Normal Affect: Full Orientation Impairment: None Memory Impairment: None Attention: Normal Hallucinations: None Other: None Suicidality: None Homicidality: None Delusions: None Behavior: Cooperative Insight: Fair Judgment: Fair Treatment ZYPREXA ZYDIS 20MG PO QHS RISPERDONE 2MG PO QHS Monitoring by Staff, Milieu, Group, and Individual counseling as needed -- According to the [place] Suicide Assessment the above named patient is on Q 15 MINUTE CHECKS. VOLUNTARY REVIEW OF Clinical notes [X ] RN notes [X] PCT documentation [X] SW notes Labs [ X] Medications [X] Care trends/care activity [X] Vitals [X] DISCUSSION WITH dietetic aide [X] Staff SW [X] Treatment Team [X] Discharge UNSURE AT THIS TIME. DISCHARGE HOME ONCE STABLE. CODING VISIT-PSYCHIATRY Date of Service: Jul 26, 2024 Billing Provider: PARISH SMITH APRN Psych Common Visit Codes: [id number] INP/OBS CARE(Low) Problem Qualifiers (1) Psychosis: Qualified Codes: F29 - Unspecified psychosis not due to a substance or known physiological condition PARISH SMITH APRN Jul 26, 2024 14:36
[2024-07-26 19:29] VITALS: RESP 16; O2SAT 98
[2024-07-26 19:35] VITALS: BP 115/60; PULSE 72; RESP 16; TEMP 97.7; O2SAT 98
[2024-07-27 07:30] VITALS: RESP 16
--- NOTE | 2024-07-27 11:25 | PROGRESS NOTE ---
Daily Progress Note Providers to CC ~ no new complaint today resting comfortably in the bed Central Line/PICC still needed: No Garcias-Non Protocol Garcias Indications Met/Not Met: F/C Indications Not Met Antibiotic Timeout Antibiotic Ordered?: No MRSA Education MRSA Education Provided to pt: No Subjective As above Objective Vital Signs Date Time Temp Pulse Resp B/P (MAP) Pulse Ox O2 Delivery O2 Flow Rate FiO2 07/26/24 19:35 97.7 72 16 115/60 (78) 98 Room Air Vital signs, stable ,afebrile. Pulse Oximetry reflects adequate oxygenation. General: well developed, well nourished. Awake , alert, and oriented x4, resting comfortably in the bed, in no acute distress . Skin: Warm, dry, no pallor, no rash or petechiae. HEENT: Atraumatic, normocephalic, EOMI, anicteric sclera B; pink conjunctiva; PERRLA, normal oropharynx, moist oral and nasal mucosa. Tympanic membrane , nose , throat clear. Neck: Trachea midline. Supple, full range of motion, no JVD, bruit , hepatojugular reflex , lymphadenopathy or masses, or other lesions Cardiac: Regular rhythm, regular rate no murmurs, rubs, or gallops. Normal S1 and S2, no S3 noticed. PMI is normal. Respiratory: Equal breath sounds bilaterally, no tachypnea; lungs clear to auscultation bilaterally, no wheezing ,rub or rales, or crackles. Chest wall is symmetric and without deformity. No signs of trauma. Chest wall is nontender. No signs of respiratory distress. Resonance is normal upon percussion bilaterally. Gastrointestinal: Abdomen symmetric, non-distended, soft, non-tender, normal bowel sounds x4 quadrant, normoactive, no hepatosplenomegaly , no masses , no bruit, no flank pain bilaterally. No voluntary guarding, rebound, or rigidity. No tenderness to percussion. No pulsatile masses. Equal femoral pulses. No Chambers's sign or McBurney point tenderness. Back; no CVA tenderness bilaterally, no deformities. Neck and back are without deformity as well. No tenderness noted on palpation of the spinous processes. Spinous processes are midline. Cervical, thoracic, and lumbar paraspinal muscles are not tender and are without spasm. Musculoskeletal: Extremities, normal range of motion, non-tender, muscle strength 5/5 x 4. Negative Homans signs bilaterally on lower extremity. Distal pulses full symmetrical, no clubbing, cyanosis , edema. Neurological: Speech is clear, alert, and oriented x 4. No motor or sensory deficit, deep tendon reflexes normal, cerebellar intact. Cranial nerves II-XII intact. Psych: Alert and or appropriate, normal affect. Vascular: Good distal pulses, which are equal x4; capillary refill less than 2 seconds. Lymphatic, no lymphadenopathy. Problem\Assessment\Plan Assessment/plan schizoaffective disorder, psychosis, paranoid delusion and auditory hallucin ation -managed as per psychiatrist Hypokalemia Potassium 4.3 on 07/16/24 Continue monitoring. Constipation MiraLax ordered, prn Dysphagia/odynophagia Consistent to acid reflux- Recommended elevating the head of the bed when sleeping, avoid carbonated beverages and caffeinated beverages Start Protonix 40 mg p.o. daily Start p.r.n. Tums chew tabs Frequent urination, resolved Likely side-effect from psychiatric medication Urinalysis and culture if indicated The Hospitalist team will continue to follow the patient, per protocol Sepsis Screening Reassessment Date: Jul 27, 2024 Date of Service: Jul 27, 2024 Billing Provider: PEDRO VILLASEÑOR MD Common Visit Codes: [id number] INP/OBS CARE(LOW) PEDRO VILLASEÑOR MD Jul 27, 2024 11:25
--- NOTE | 2024-07-27 12:15 | PROGRESS NOTE ---
Progress Note Dictate Providers to CC ~ Central Line/PICC still needed: N\\A Antibiotic Ordered?: No MRSA Education MRSA Education Provided to pt: No Objective Vitals Vital Signs Date Time Temp Pulse Resp B/P (MAP) Pulse Ox O2 Delivery O2 Flow Rate FiO2 07/26/24 19:35 97.7 72 16 115/60 (78) 98 Room Air Problem\\Assessment\\Plan Problems/Diagnosis: (1) Schizoaffective disorder (2) Psychosis (3) Paranoid delusion (4) Auditory hallucinations Psychiatrist's Progress Note Date of Service: Jul 27, 2024 Notes CHART REVIEW Client presents with paranoid and persecutory delusions including believes that is someone as locking her jaw, administrating medicines without her consent and that she has been follow. Client also believes the others are conspiring to cause her harm and are in agreement that she should by suicide. Additionally client reports experiencing auditory hallucinations, although was unable to provide could description of nature. Client may possibly be responding to internal stimuli as having. The what appeared to be property as speech. ASSESSMENT The patient is interviewed in observation room. The patient seen actively walking in hallway. The patient endorses "I am worried about my car it wasn't starting so I took a train here from [place]." I left my care near [place], [place]." "You guys were messing with it and I don't think I want it." "You know you guys are part of the team." " They would make me say stuff I didn't mean; they would zapp me and make me say stuff." "I know the control me with frequencies." "For some reason my family is all about me life." "You know the truth but you want tell me." Denies SI. Denies HI. Denies AVH. The patient endorses adequate sleep and food intake. The patient is stable no acute distress noted. The patient is delusional, paranoid, and engaged during session. Per staff report no behavior issues. Per staff report patient is compliant with medication regimen. Patient noted to be out of room engaging with peers and staff more. Will continue daily assessment and adjusting treatment as needed. Closely monitor behavior and response to medication during hospitalization. Results Of any Diagn. Testing REVIEW OF LABS WBC 5.4 RBC 4.72 HEMOGLOBIN 12.4 HEMATOCRIT 38.1 PLATELET COUNT 328 SODIUM 138 POTASSIUM 3.2 CHLORIDE 104 ANION GAP 8 BUN 7 CREATININE 0.78 CALCIUM 8.8 ALBUMIN 3.7 TSH 1.35 URINALYSIS NEGATIVE COVID NEGATIVE URINE TOX SCREEN NEGATIVE Appearnace: Other Speech: Other (CIRCUMSTANTIAL) Eye Contact: Normal Motor Activity: Normal Affect: Constricted Orientation Impairment: None Memory Impairment: None Attention: Normal Hallucinations: None Other: None Suicidality: None Homicidality: None Delusions: Paraniod Behavior: Cooperative Insight: Fair Judgment: Fair, Poor Treatment ZYPREXA ZYDIS 20MG PO QHS Increase RISPERDONE 4MG PO QHS Monitoring by Staff, Milieu, Group, and Individual counseling as needed -- According to the [place] Suicide Assessment the above named patient is on Q 15 MINUTE CHECKS. VOLUNTARY REVIEW OF Clinical notes [X ] RN notes [X] PCT documentation [X] SW notes Labs [ X] Medications [X] Care trends/care activity [X] Vitals [X] DISCUSSION WITH chemistry teacher [X] Staff SW [X] Treatment Team [X] Discharge UNSURE AT THIS TIME. DISCHARGE HOME ONCE STABLE. CODING VISIT-PSYCHIATRY Date of Service: Jul 27, 2024 Billing Provider: PARISH SMITH APRN Psych Common Visit Codes: [id number] INP/OBS CARE(Low) Problem Qualifiers (1) Psychosis: Qualified Codes: F29 - Unspecified psychosis not due to a substance or known physiological condition PARISH SMITH APRN Jul 27, 2024 12:15
[2024-07-27 19:42] VITALS: RESP 18; O2SAT 90
[2024-07-27 19:58] VITALS: BP 90/56; PULSE 90; RESP 18; TEMP 98.3; O2SAT 97
[2024-07-27] MEDS: mag hydrox/Alum hydrox/simeth 30ml oral suspension PO PRN (22:56)
[2024-07-28 07:30] VITALS: RESP 18
--- NOTE | 2024-07-28 13:38 | PROGRESS NOTE ---
Progress Note Dictate Providers to CC ~ Objective Vitals Vital Signs Date Time Temp Pulse Resp B/P (MAP) Pulse Ox O2 Delivery O2 Flow Rate FiO2 07/28/24 07:30 18 Room Air 07/27/24 19:58 98.3 90 90/56 (67) 97 Problem\Assessment\Plan Problems/Diagnosis: (1) Schizoaffective disorder (2) Psychosis (3) Paranoid delusion (4) Auditory hallucinations Psychiatrist's Progress Note Date of Service: Jul 28, 2024 CODING VISIT-PSYCHIATRY Date of Service: Jul 28, 2024 Billing Provider: PARISH SMITH APRN Psych Common Visit Codes: [id number] INP/OBS CARE(Mod) Problem Qualifiers (1) Psychosis: Qualified Codes: F29 - Unspecified psychosis not due to a substance or known physiological condition PARISH SMITH APRN Jul 28, 2024 13:38
--- NOTE | 2024-07-28 13:38 | PROGRESS NOTE ---
Progress Note Dictate Providers to CC ~ Central Line/PICC still needed: N\\A Antibiotic Ordered?: No MRSA Education MRSA Education Provided to pt: No Objective Vitals Vital Signs Date Time Temp Pulse Resp B/P (MAP) Pulse Ox O2 Delivery O2 Flow Rate FiO2 07/28/24 07:30 18 Room Air 07/27/24 19:58 98.3 90 90/56 (67) 97 Problem\\Assessment\\Plan Problems/Diagnosis: (1) Schizoaffective disorder (2) Psychosis (3) Paranoid delusion (4) Auditory hallucinations Psychiatrist's Progress Note Date of Service: Jul 28, 2024 Notes CHART REVIEW Client presents with paranoid and persecutory delusions including believes that is someone as locking her jaw, administrating medicines without her consent and that she has been follow. Client also believes the others are conspiring to cause her harm and are in agreement that she should by suicide. Additionally client reports experiencing auditory hallucinations, although was unable to provide could description of nature. Client may possibly be respo nding to internal stimuli as having. The what appeared to be property as speech. ASSESSMENT The patient is interviewed in observation room. The patient seen actively sitting in rec room. The patient endorses "I want to go to a 30-day program." The patient informed she needs to switch her [facility]. The SW is assisting th patient with this. Denies SI. Denies HI. Denies AVH. The patient endorses adequate sleep and food intake. The patient is stable no acute distress noted. The patient is calm, cooperative, and engaged during session. Per staff report no behavior issues. Per staff report patient is compliant with medication regimen. Patient noted to be out of room engaging with peers and staff more. Patient endorses she would like to switch her from [facility] to [facility]. Will continue daily assessment and adjusting treatment as needed. Closely monitor behavior and response to medication during hospitalization. Results Of any Diagn. Testing REVIEW OF LABS WBC 5.4 RBC 4.72 HEMOGLOBIN 12.4 HEMATOCRIT 38.1 PLATELET COUNT 328 SODIUM 138 POTASSIUM 3.2 CHLORIDE 104 ANION GAP 8 BUN 7 CREATININE 0.78 CALCIUM 8.8 ALBUMIN 3.7 TSH 1.35 URINALYSIS NEGATIVE COVID NEGATIVE URINE TOX SCREEN NEGATIVE Appearnace: Other Speech: Other (CIRCUMSTANTIAL) Eye Contact: Normal Motor Activity: Normal Affect: Full Mood: Euthymic Orientation Impairment: None Memory Impairment: None Attention: Normal Hallucinations: None Other: None Suicidality: None Homicidality: None Delusions: None Behavior: Cooperative Insight: Fair Judgment: Fair, Poor Treatment ZYPREXA ZYDIS 20MG PO QHS RISPERDONE 4MG PO QHS Monitoring by Staff, Milieu, Group, and Individual counseling as needed -- According to the [place] Suicide Assessment the above named patient is on Q 15 MINUTE CHECKS. VOLUNTARY REVIEW OF Clinical notes [X ] RN notes [X] PCT documentation [X] SW notes Labs [ X] Medications [X] Care trends/care activity [X] Vitals [X] DISCUSSION WITH pouncer machine [X] Staff SW [X] Treatment Team [X] Discharge UNSURE AT THIS TIME. DISCHARGE HOME ONCE STABLE. CODING VISIT-PSYCHIATRY Date of Service: Jul 28, 2024 Billing Provider: PARISH SMITH APRN Psych Common Visit Codes: [id number] INP/OBS CARE(Mod) Problem Qualifiers (1) Psychosis: Qualified Codes: F29 - Unspecified psychosis not due to a substance or known physiological condition PARISH SMITH APRN Jul 28, 2024 13:38
[2024-07-28 15:13] LABS: BILIRUBIN,URINE NEGATIVE (Neg); CLARITY,URINE CLEAR (Clear); COLOR,URINE YELLOW (Yellow); GLUCOSE, URINE NEGATIVE (Neg); KETONES,URINE NEGATIVE (Neg); LEUKOCYTE ESTERASE ,URINE NEGATIVE (Neg); NITRITES, URINE NEGATIVE (Neg); OCCULT BLOOD,URINE MODERATE (Neg); PROTEIN,URINE NEGATIVE (Neg); UROBILINOGEN,URINE 0.2 E.U/dL (0.2-1.0)
[2024-07-28 15:34] LABS: UA COLLECTION TYPE NON-SPECIFIED
[2024-07-28 15:42] LABS: BACTERIA,URINE FEW /HPF (Neg); SQUAMOUS EPITHELIAL CELL,UR FEW /LPF (FEW); WBC,URINE 0-4 /HPF (0-4)
[2024-07-28 19:00] VITALS: RESP 16; O2SAT 77
[2024-07-28 20:00] VITALS: BP 124/81; PULSE 77; RESP 16; TEMP 97.3; O2SAT 98
[2024-07-28] MEDS: risperiDONE 2mg tablet PO SCH (20:09)
[2024-07-29 07:30] VITALS: RESP 18
--- NOTE | 2024-07-29 12:09 | PROGRESS NOTE ---
Progress Note Dictate Providers to CC ~ Central Line/PICC still needed: N\\A Antibiotic Ordered?: No Objective Vitals Vital Signs Date Time Temp Pulse Resp B/P (MAP) Pulse Ox O2 Delivery O2 Flow Rate FiO2 07/28/24 20:00 97.3 77 16 124/81 (95) 98 Room Air Problem\\Assessment\\Plan Problems/Diagnosis: (1) Schizoaffective disorder Psychiatrist's Progress Note Date of Service: Jul 29, 2024 Notes Ms Sona Benjamin is a 48yo female presents via EMS after being placed on a [address] [facility] today. The patient is unwilling to cooperate with the interview and is resistant to provide the appropriate information. According to her 5150 she was experiencing paranoid and bizarre delusions. He was being followed in endorses auditory hallucinations. Currently unable to meet her basic needs for food and group home and keeps safe. According to paperwork Arlene father says she will not talking to him for over a year and refuses to stay with them because she believes she has been locked into a facility previously. CHART REVIEW Client presents with paranoid and persecutory delusions including believes that is someone as locking her jaw, administrating medicines without her consent and that she has been follow. Client also believes the others are conspiring to c ause her harm and are in agreement that she should by suicide. Additionally client reports experiencing auditory hallucinations, although was unable to provide could description of nature. Client may possibly be responding to internal stimuli as having. The what appeared to be property as speech. Patient is an obese female of average height. She long brown graying hair put up in a bun. Wearing glasses. hyperverbal. Green scrubs. 'I'm doing good.' Moving right along. Getting ready to get into a fdc, half way place. Hoping to get her car back. 'If I have a car, at least I can have a home.' Homeless after left her car. Was thinking she shouldn't drive. They were putting and projecting sounds on my car. [place] like it made me vulnerable. Able to manipulate my car. 'I don't know who they are.' Not thinking that anyone messing with her now. "They stalk me with cars, but I'm up here and they're on the ground and up high... can't really hurt me.' Denies AH. Denies VH. [place] voices out there they were projecting voices in my head. Get scared and frustrated and everybody is out to get me. No Depression. Sadness will hit me sometimes at night. Does get a lot of anxiety. when eating start rocking being around people. Eating food and 'pretty soon it's gonna be gone... happiness and be back to being bored.' 'I don't want to because I'm taking medicine.' Been sleeping. Mental Status SPEECH: Pressured and hyperverbal EYE CONTACT: avoidant AFFECT: mood congruent MOOD: a bit elevated ORIENTATION IMPAIRMENT: None MEMORY IMPAIRMENT: None ATTENTION: Distracted HALLUCINATIONS: Denies SUICIDALITY: Denies DELUSIONS: Still paranoid BEHAVIOR: Cooperative but seems a little guarded and a little anxious rocking back and forth JUDGMENT: Poor INSIGHT: VERY Poor Results Of any Diagn. Testing REVIEW OF LABS WBC 5.4 RBC 4.72 HEMOGLOBIN 12.4 HEMATOCRIT 38.1 PLATELET COUNT 328 SODIUM 138 POTASSIUM 3.2 CHLORIDE 104 ANION GAP 8 BUN 7 CREATININE 0.78 CALCIUM 8.8 ALBUMIN 3.7 TSH 1.35 URINALYSIS NEGATIVE COVID NEGATIVE URINE TOX SCREEN NEGATIVE Treatment ZYPREXA ZYDIS 20MG PO QHS Monitoring by Staff, Milieu, Group, and Individual counseling as needed -- According to the [place] Suicide Assessment the above named patient is on Q 15 MINUTE CHECKS. VOL--GD--The patient is unable to formulate a viable plan for food, clothing and group home. We are still titrating medications to an effective dose while maintaining a therapeutic environment to prevent decompensation and readmission. REVIEW OF Clinical notes [X ] RN notes [X] PCT documentation [X] notes [X] Labs [ X] Medications [X] Care trends/care activity [X] Vitals [X] DISCUSSION WITH machine brush maker [X] DISCHARGE UNSURE AT THIS TIME. CODING VISIT-PSYCHIATRY Date of Service: Jul 29, 2024 Billing Provider: JAMAR LEE Psych Common Visit Codes: [id number] INP/OBS CARE(High) Problem Qualifiers (1) Schizoaffective disorder: Qualified Codes: F25.9 - Schizoaffective disorder, unspecified JAMAR LEE Jul 29, 2024 12:09
[2024-07-29 19:00] VITALS: RESP 20; O2SAT 100
--- NOTE | 2024-07-29 19:07 | PROGRESS NOTE- Residence ---
Progress Note - Resident Providers to CC Resident Creating Document: CHICHI TOM RES ~ Antibiotic Timeout Antibiotic Ordered?: No Subjective Patient was seen and examined at the mental health unit today. she attempted to ask help for her constipation but she decided not to get any laxatives later at the end of conversations. She was advised to optimal hydration and movement with enriched fiber diet. Objective Vital Signs Date Time Temp Pulse Resp B/P (MAP) Pulse Ox O2 Delivery O2 Flow Rate FiO2 07/29/24 07:30 18 07/29/24 07:30 Room Air 07/28/24 20:00 97.3 77 124/81 (95) 98 Vitals were stable at the moment, General: Well alert, well oriented, not confused, not agitated, not in acute distress, well cooperated during the physical. HEENT: Conjunctive are pink, sclerae clear, no icterus, pupil is equal in both sides, reactive to light, no ear discharge, no pharyngeal erythema or an edema, mouth and lips are moist. Neck: Supple, no JVD, no lymphadenopathy and thyromegaly. Lungs:Equal air entry on both lungs, no additional sounds Heart: S1-S2 regular sinus rhythm and, regular rate, no gallops, no rubs, no murmurs Abdomen: No visible peristalsis, Bowel sounds present on auscultation, soft, nontender, no guarding, no rigidity Extremities: No obvious deformities, no pitting edema bilaterally, capillary refill intact, able to wiggle toes both sides, peripheral pulsations are intact on both sides INFORMATION ASSURANCE OFFICER: No focal neurological deficits, no motor and sensory weakness in all 4 extremities, could move all 4 extremities Musculoskeletal: No joint swelling, deformities, inflammations, and no scoliosis and back tenderness Skin: No active skin lesions and rashes Assessment Assessment This is the hospitalist progress note on patients hospitalized at [facility]. The patient complains of difficulty swallowing every couple of days she does state she wakes up with a sour taste in her mouth and does have reflux. The patient is resistant to starting medications when we talked at a further length it appears that the patient does not want to take this rectangular shaped pill it get stuck in his throat. The patient's RN Shantell informs me the patient had a bedside swallow eval and speech therapy stated that there was no mechanical obstruction and recommended a regular diet. The patient is states that her psychiatric medications causes her to go to the bathroom when I asked her further questions it appears that it causes her to have frequent urination and she was concerned she may have a urinary tract infection. Plan Plan schizoaffective disorder, psychosis, paranoid delusion and auditory hallucination -managed as per psychiatrist Hypokalemia Potassium 3.3 and latest 4.3 on 07/16 Continue monitoring. Constipation MiraLax ordered and suggested as in subjective We will continue to follow from hospitalist team as needed or as per protocol, appreciate for letting us involved in the patient's care, hospitalist teams are welcome to medical consultation. Resident MD attestation: Patient was seen and examined with attending MD, Dr. Brett TOM MD Internal Medicine Resident, PGY2 [facility] Date of Service: Jul 29, 2024 Billing Provider: LAURYN BALDWIN MD Common Visit Codes: [id number] INP/OBS CARE(MOD) CHICHI TOM, DENIS Jul 29, 2024 19:07 LAURYN BALDWIN MD Jul 29, 2024 20:04
[2024-07-29 20:00] VITALS: BP 101/80; PULSE 98; RESP 20; TEMP 98.6; O2SAT 100
[2024-07-30 07:00] VITALS: RESP 16
[2024-07-30 08:00] VITALS: RESP 16
--- NOTE | 2024-07-30 15:41 | PROGRESS NOTE ---
Progress Note Dictate Providers to CC ~ Antibiotic Ordered?: No Objective Vitals Vital Signs Date Time Temp Pulse Resp B/P (MAP) Pulse Ox O2 Delivery O2 Flow Rate FiO2 07/30/24 08:00 16 Room Air 07/29/24 20:00 98.6 98 101/80 (87) 100 Problem\Assessment\Plan Problems/Diagnosis: (1) Schizoaffective disorder Psychiatrist's Progress Note Date of Service: Jul 30, 2024 Notes Ms Sona Benjamin is a 48yo female presents via EMS after being placed on a 5150 by [facility] today. The patient is unwilling to cooperate with the interview and is resistant to provide the appropriate information. According to her 5150 she was experiencing paranoid and bizarre delusions. He was being followed in endorses auditory hallucinations. Currently unable to meet her basic needs for food and senior care and keeps safe. According to paperwork Arlene hernandez says she will not talking to him for over a year and refuses to stay with them because she believes she has been locked into a facility previously. CHART REVIEW Client presents with paranoid and persecutory delusions including believes that is someone as locking her jaw, administrating medicines without her consent and that she has been follow. Client also believes the others are conspiring to cause her harm and are in agreement that she should by suicide. Additionally client reports experiencing auditory hallucinations, although was unable to provide could description of nature. Client may possibly be responding to internal stimuli as having. The what appeared to be property as speech. Patient is an obese female of average height. She long brown graying hair put up in a messy bun. Wearing glasses. Green scrubs. Distracted, not as hyperverbal today. She is rocking back and forth less as well. Better to not use digital things use your mind more. 'been alright.' Supposed to get transferred into a home or something. No real depression. 'the medicine is working.' Not feeling paranoid but then starts expressing paranoid ideation. 'hopefully it stays that way.' 'they did it on purpose... they want me to not be functioning in society.' Not having AH/VH. Sleep is good. BM decent. Yesterday, but kind of hard. Anxiety is better. Mental Status SPEECH: Less hyperverbal today. More regular. EYE CONTACT: avoidant AFFECT: Appropriate MOOD: Fairly euthymic ORIENTATION IMPAIRMENT: None MEMORY IMPAIRMENT: None ATTENTION: Distracted HALLUCINATIONS: Denies SUICIDALITY: Denies DELUSIONS: Still a little paranoid BEHAVIOR: Cooperative but seems a little guarded and a little anxious JUDGMENT: Poor INSIGHT: VERY Poor Results Of any Diagn. Testing REVIEW OF LABS WBC 5.4 RBC 4.72 HEMOGLOBIN 12.4 HEMATOCRIT 38.1 PLATELET COUNT 328 SODIUM 138 POTASSIUM 3.2 CHLORIDE 104 ANION GAP 8 BUN 7 CREATININE 0.78 CALCIUM 8.8 ALBUMIN 3.7 TSH 1.35 URINALYSIS NEGATIVE COVID NEGATIVE URINE TOX SCREEN NEGATIVE Treatment d/c Risperdal she is refusing to take it d/t paranoid thinking. Will increase the Zyprexa since she seems to be okay with this med. We can even go as high as 40mg of Zyprexa if needed. INCREASE ZYPREXA ZYDIS 25MG PO QHS Monitoring by Staff, Milieu, Group, and Individual counseling as needed -- According to the [place] Suicide Assessment the above named patient is on Q 15 MINUTE CHECKS. VOL--GD--The patient is unable to formulate a viable plan for food, clothing and senior care. We are still titrating medications to an effective dose while maintaining a therapeutic environment to prevent decompensation and readmission. REVIEW OF Clinical notes [X ] RN notes [X] PCT documentation [X] SW notes [X] Labs [ X] Medications [X] Care trends/care activity [X] Vitals [X] DISCUSSION WITH plan checker [X] DISCHARGE UNSURE AT THIS TIME. CODING VISIT-PSYCHIATRY Date of Service: Jul 30, 2024 Billing Provider: JAMAR LEE Psych Common Visit Codes: [id number] INP/OBS CARE(Mod) Problem Qualifiers (1) Schizoaffective disorder: Qualified Codes: F25.9 - Schizoaffective disorder, unspecified JAMAR LEE Jul 30, 2024 15:41
[2024-07-30 18:44] VITALS: RESP 16; O2SAT 99
[2024-07-30 20:08] VITALS: BP 114/75; PULSE 70; RESP 18; TEMP 97.6; O2SAT 98
[2024-07-30] MEDS: OLANZapine 5mg rapidly disint. tablet PO SCH (21:07)
[2024-07-31] MEDS: docusate sod 100mg capsule PO SCH (07:30)
[2024-07-31 08:00] VITALS: BP 97/60; PULSE 54; RESP 16; TEMP 98.5; O2SAT 98
--- NOTE | 2024-07-31 08:48 | PROGRESS NOTE ---
Daily Progress Note Providers to CC ~ no new complaint today, resting comfortably in the bed Central Line/PICC still needed: No Garcias-Non Protocol Garcias Indications Met/Not Met: F/C Indications Not Met Antibiotic Timeout Antibiotic Ordered?: No MRSA Education MRSA Education Provided to pt: No Subjective As above Objective Vital Signs Date Time Temp Pulse Resp B/P (MAP) Pulse Ox O2 Delivery O2 Flow Rate FiO2 07/30/24 20:08 97.6 70 18 114/75 (88) 98 07/30/24 18:44 Room Air Vital signs, stable ,afebrile. Pulse Oximetry reflects adequate oxygenation. General: well developed, well nourished. Awake , alert, and oriented x4, resting comfortably in the bed, in no acute distress . Skin: Warm, dry, no pallor, no rash or petechiae. HEENT: Atraumatic, normocephalic, EOMI, anicteric sclera B; pink conjunctiva; PERRLA, normal oropharynx, moist oral and nasal mucosa. Tympanic membrane , nose , throat clear. Neck: Trachea midline. Supple, full range of motion, no JVD, bruit , hepatojugular reflex , lymphadenopathy or masses, or other lesions Cardiac: Regular rhythm, regular rate no murmurs, rubs, or gallops. Normal S1 and S2, no S3 noticed. PMI is normal. Respiratory: Equal breath sounds bilaterally, no tachypnea; lungs clear to auscultation bilaterally, no wheezing ,rub or rales, or crackles. Chest wall is symmetric and without deformity. No signs of trauma. Chest wall is nontender. No signs of respiratory distress. Resonance is normal upon percussion bilaterally. Gastrointestinal: Abdomen symmetric, non-distended, soft, non-tender, normal bowel sounds x4 quadrant, normoactive, no hepatosplenomegaly , no masses , no bruit, no flank pain bilaterally. No voluntary guarding, rebound, or rigidity. No tenderness to percussion. No pulsatile masses. Equal femoral pulses. No Chambers's sign or McBurney point tenderness. Back; no CVA tenderness bilaterally, no deformities. Neck and back are without deformity as well. No tenderness noted on palpation of the spinous processes. Spinous processes are midline. Cervical, thoracic, and lumbar paraspinal muscles are not tender and are without spasm. Musculoskeletal: Extremities, normal range of motion, non-tender, muscle strength 5/5 x 4. Negative Homans signs bilaterally on lower extremity. Distal pulses full symmetrical, no clubbing, cyanosis , edema. Neurological: Speech is clear, alert, and oriented x 4. No motor or sensory deficit, deep tendon reflexes normal, cerebellar intact. Cranial nerves II-XII intact. Psych: Alert and or appropriate, normal affect. Vascular: Good distal pulses, which are equal x4; capillary refill less than 2 seconds. Lymphatic, no lymphadenopathy. Problem\Assessment\Plan Assessment/plan schizoaffective disorder, psychosis, paranoid delusion and auditory hallucination -managed as per psychiatrist Hypokalemia Potassium 4.3 on 07/16/24, resolved Continue monitoring. Mild hyperlipidemia, consulted regarding lifestyle modifications diet, Chronic Constipation, in exacerbation MiraLax ordered, prn Dysphagia/odynophagia Consistent to acid reflux- Recommended elevating the head of the bed when sleeping, avoid carbonated beverages and caffeinated beverages Start Protonix 40 mg p.o. daily Start p.r.n. Tums chew tabs Frequent urination, resolved Likely side-effect from psychiatric medication Urinalysis and culture if indicated The Hospitalist team will continue to follow the patient, per protocol Sepsis Screening Reassessment Date: Jul 31, 2024 Date of Service: Jul 31, 2024 Billing Provider: PEDRO VILLASEÑOR MD Common Visit Codes: [id number] INP/OBS CARE(LOW) PEDRO VILLASEÑOR MD Jul 31, 2024 08:48
--- NOTE | 2024-07-31 11:28 | PROGRESS NOTE ---
Progress Note Dictate Providers to CC ~ Central Line/PICC still needed: N\A Antibiotic Ordered?: No Objective Vitals Vital Signs Date Time Temp Pulse Resp B/P (MAP) Pulse Ox O2 Delivery O2 Flow Rate FiO2 07/31/24 08:00 98.5 54 16 97/60 (72) 98 Room Air Problem\Assessment\Plan Problems/Diagnosis: (1) Schizoaffective disorder Psychiatrist's Progress Note Date of Service: Jul 31, 2024 Notes Ms Sona Benjamin is a 48yo female presents via EMS after [place] [address] [facility] The patient is unwilling to cooperate with the interview and is resistant to provide the appropriate information. According to her 5150 she was experiencing paranoid and bizarre delusions. He was being followed in endorses auditory hallucinations. Currently unable to meet her basic needs for food and prison and keeps safe. According to paperwork Arlene father says she will not talking to him for over a year and refuses to stay with them because she believes she has been locked into a facility previously. CHART REVIEW Client presents with paranoid and persecutory delusions including believes that is someone as locking her jaw, administrating medicines without her consent and that she has been follow. Client also believes the others are conspiring to cause her harm and are in agreement that she should by suicide. Additionally client reports experiencing auditory hallucinations, although was unable to provide could description of nature. Client may possibly be responding to internal stimuli as having. The what appeared to be property as speech. Patient is an obese female of average height. She long brown graying hair put up in a messy bun. Wearing glasses. Green scrubs. 'been good day.' 'a little nervous' Feeling the zyprexa has really helped. Before edgy and couldn't get along with people. Get irritated easily. Previously was drinking a lot of caffeine. Combo of not being on meds and caffeine. 'too exhausting for me.' 'I'll just go on the streets...' 'easier to just be homeless.' Not feeling hopeless. 'Like I'm just here.' Needs the number to change insurance. Denies AH/VH. 'I feel okay with that.' Hx of AH/VH. Thinks it is 'mostly behind me.' Sleeping good. Hard to fall asleep, because she is taking naps during the day. Last BM today. Mental Status SPEECH: Less hyperverbal today. More regular. EYE CONTACT: intermittent, less avoidant AFFECT: Appropriate MOOD: Fairly Euthymic ORIENTATION IMPAIRMENT: None MEMORY IMPAIRMENT: None ATTENTION: Distracted HALLUCINATIONS: Denies SUICIDALITY: Denies DELUSIONS: Denies paranoid thinking; Does not express any delusions BEHAVIOR: Cooperative, less guarded and a little anxious- rocking back and forth JUDGMENT: Poor INSIGHT: VERY Poor Results Of any Diagn. Testing REVIEW OF LABS WBC 5.4 RBC 4.72 HEMOGLOBIN 12.4 HEMATOCRIT 38.1 PLATELET COUNT 328 SODIUM 138 POTASSIUM 3.2 CHLORIDE 104 ANION GAP 8 BUN 7 CREATININE 0.78 CALCIUM 8.8 ALBUMIN 3.7 TSH 1.35 URINALYSIS NEGATIVE COVID NEGATIVE URINE TOX SCREEN NEGATIVE Treatment Doing better with a little bit more Zyprexa. ZYPREXA ZYDIS 25MG PO QHS Monitoring by Staff, Milieu, Group, and Individual counseling as needed -- According to the [place] Suicide Assessment the above named patient is on Q 15 MINUTE CHECKS. VOL--GD--The patient is unable to formulate a viable plan for food, clothing and prison. We are still titrating medications to an effective dose while maintaining a therapeutic environment to prevent decompensation and readmission. REVIEW OF Clinical notes [X ] RN notes [X] PCT documentation [X] notes [X] Labs [ X] Medications [X] Care trends/care activity [X] Vitals [X] DISCUSSION WITH faculty i on call medical assistant [X] DISCHARGE UNSURE AT THIS TIME. CODING VISIT-PSYCHIATRY Date of Service: Jul 31, 2024 Billing Provider: JAMAR LEE Psych Common Visit Codes: [id number] INP/OBS CARE(Low) Problem Qualifiers (1) Schizoaffective disorder: Qualified Codes: F25.9 - Schizoaffective disorder, unspecified JAMAR LEE Jul 31, 2024 11:28
[2024-07-31 19:00] VITALS: RESP 14; O2SAT 100
[2024-07-31 20:00] VITALS: BP 132/77; PULSE 100; RESP 18; TEMP 97.1; O2SAT 99
[2024-08-01 06:30] VITALS: BP 75/53; PULSE 67; RESP 18; TEMP 98.9; O2SAT 99
[2024-08-01 07:30] VITALS: BP 98/68
[2024-08-01 08:00] VITALS: RESP 16; O2SAT 99
--- NOTE | 2024-08-01 09:50 | PROGRESS NOTE ---
Progress Note Dictate Providers to CC ~ Central Line/PICC still needed: N\\A Antibiotic Ordered?: No MRSA Education MRSA Education Provided to pt: No Objective Vitals Vital Signs Date Time Temp Pulse Resp B/P (MAP) Pulse Ox O2 Delivery O2 Flow Rate FiO2 08/01/24 07:30 98/68 (78) 08/01/24 06:30 98.9 67 18 99 Room Air Problem\\Assessment\\Plan Problems/Diagnosis: (1) Schizoaffective disorder (2) Psychosis (3) Paranoid delusion (4) Auditory hallucinations Psychiatrist's Progress Note Date of Service: Aug 01, 2024 Notes CHART REVIEW Client presents with paranoid and persecutory delusions including believes that is someone as locking her jaw, administrating medicines without her consent and that she has been follow. Client also believes the others are conspiring to cause her harm and are in agreement that she should by suicide. Additionally client reports experiencing auditory hallucinations, although was unable to provide could description of nature. Client may possibly be respo nding to internal stimuli as having. The what appeared to be property as speech. ASSESSMENT The patient is interviewed in observation room. The patient seen actively sitting in rec room. The patient endorses "I am good." The patient endorses no worsening metal health symptoms. Denies SI. Denies HI. Denies AVH. The patient endorses adequate sleep and food intake. The patient is stable no acute distress noted. The patient is calm, cooperative, and engaged during session. Per staff report no behavior issues. Per staff report patient is compliant with medication regimen. Patient noted to be out of room engaging with peers and staff more. Will continue daily assessment and adjusting treatment as needed. Closely monitor behavior and response to medication during hospitalization. Results Of any Diagn. Testing REVIEW OF LABS WBC 5.4 RBC 4.72 HEMOGLOBIN 12.4 HEMATOCRIT 38.1 PLATELET COUNT 328 SODIUM 138 POTASSIUM 3.2 CHLORIDE 104 ANION GAP 8 BUN 7 CREATININE 0.78 CALCIUM 8.8 ALBUMIN 3.7 TSH 1.35 URINALYSIS NEGATIVE COVID NEGATIVE URINE TOX SCREEN NEGATIVE Appearnace: Disheveled Speech: Other (CIRCUMSTANTIAL) Eye Contact: Normal Motor Activity: Normal Affect: Full Mood: Euthymic Orientation Impairment: None Memory Impairment: None Attention: Normal Hallucinations: None Other: None Suicidality: None Homicidality: None Delusions: None Behavior: Cooperative Insight: Poor Judgment: Poor Treatment ZYPREXA ZYDIS 25MG PO QHS Monitoring by Staff, Milieu, Group, and Individual counseling as needed -- According to the [place] Suicide Assessment the above named patient is on Q 15 MINUTE CHECKS. VOLUNTARY REVIEW OF Clinical notes [X ] RN notes [X] PCT documentation [X] SW notes Labs [ X] Medications [X] Care trends/care activity [X] Vitals [X] DISCUSSION WITH nurse companion [X] Staff SW [X] Treatment Team [X] Discharge UNSURE AT THIS TIME. DISCHARGE HOME ONCE STABLE. CODING VISIT-PSYCHIATRY Date of Service: Aug 01, 2024 Billing Provider: PARISH SMITH APRN Psych Common Visit Codes: [id number] INP/OBS CARE(Mod) Problem Qualifiers (1) Schizoaffective disorder: Qualified Codes: F25.9 - Schizoaffective disorder, unspecified (2) Psychosis: Qualified Codes: F29 - Unspecified psychosis not due to a substance or known physiological condition PARISH SMITH APRN Aug 01, 2024 09:50
[2024-08-01 19:00] VITALS: RESP 16; O2SAT 100
[2024-08-01 20:00] VITALS: BP 111/66; PULSE 74; RESP 16; TEMP 98; O2SAT 100
[2024-08-02] MEDS ORDERED: TRAZ-251 PO (05:17)
[2024-08-02] MEDS ORDERED: OLAN5TAB29 PO (05:17)
[2024-08-02] MEDS ORDERED: PANT40TA54 PO (05:17)
--- NOTE | 2024-08-02 13:45 | DISCHARGE SUMMARY ---
Discharge Summary Providers to CC ~ Discharge Summary Admission Diagnosis: SCHIZOEFFECTIVE DISORDER Hospital Course DATE OF ADMISSION: DATE OF DISCHARGE: Discharge Diagnosis\\Comment: SCHIZOEFFECTIVE DISORDER Operations\\Procedures: NONE Consultants: MEDICAL TEAM Complications: NONE Condition on DC: Stable 2 or more antipsychotic used: No 2/more antipsychotic addressed: No Does Patient smoke: No Smoking education given.: No New Medications: Olanzapine (Olanzapine) 5 Mg Tab.rapdis 25 MG PO HS for 30 Days, #120 TAB Pantoprazole Sodium (Pantoprazole Sodium) 40 Mg Tablet.dr 40 MG PO BKF for 30 Days, #30 TAB.SR Trazodone HCl (Trazodone HCl) 50 Mg Tablet 50 MG PO PRN PRN for sleep for 30 Days, #30 TAB Discontinued Medications: Risperidone (Risperidone) 2 Mg Tablet 1 TAB PO HS for 30 Days, #30 TAB 0 Refills Discharge Summary: CHART REVIEW Client presents with paranoid and persecutory delusions including believes that is someone as locking her jaw, administrating medicines without her consent and that she has been follow. Client also believes the others are conspiring to cause her harm and are in agreement that she should by suicide. Additional ly client reports experiencing auditory hallucinations, although was unable to provide could description of nature. Client may possibly be responding to internal stimuli as having. The what appeared to be property as speech. Patient actively seen and examined on day of discharge 08/02/2024, by myself, RAZ Villanueva. The patient is interviewed in observation room. The cara ent endorses "Good." Denies SI. Denies HI. Denies AVH. Sona was able to formulate a safety plan which includes going to the emergency room if symptoms return or worsen. Call [phone] or [phone] for immediate assistance if necessary. During his hospital stay, Sona receive multidisciplinary treatment he adhered to his medication regimen and has been pleasant and cooperative. She denies any suicidal ideation (SI), homicidal ideation (HI), auditory/visual hallucination (HI). Staff has reported no behavioral issues, and the patient has been sleeping well, adequate food intake, with no mood or behavioral changes noted. The decision to discharge Sona was made in consensus with the treatment team, including the social security benefits interviewer, community reinvestment act officer, and propellant charge zone assembler on duty. The patient was discharged with a 30 day supply of medications. MENTAL STATUS EXAM APPEARANCE: APPROPRIATELY. DRESSED IN STREET CLOTHING. SPEECH: CIRCUMSTANCE EYE CONTACT: NORMAL AFFECT: CONGRUENT WITH MOOD MOOD: "GOOD" ORIENTATION IMPAIRMENT: NONE MEMORY IMPAIRMENT: NONE ATTENTION: NORMAL HALLUCINATIONS: NONE SUICIDALITY: NONE HOMICIDALITY: NONE DELUSIONS: NONE BEHAVIOR: COOPERATIVE, PLEASANT JUDGMENT: FAIR INSIGHT: FAIR Continue Current Inpatient Psychotropic Regimen @ home Follow-Up with Psychiatric Provider Safety Plan Discussed DISCHARGE CONDITION: Her readiness for discharge is supported by his stable mental status, adherence to treatment, and proactive approach to managing his mental health. Denies SI. Denies HI. Denies A/V/H. The patient has been informed to continue follow-up care to ensure ongoing support and monitoring. Patient discharged to [facility]. *Problems/Diagnosis: (1) Schizoaffective disorder Status: Acute Total Time Spent on D/C: > 30 Minutes Counseling Services Smoking & Tobacco Cessation: N/A CODING VISIT-PSYCHIATRY Date of Service: Aug 02, 2024 Billing Provider: PARISH SMITH APRN Psych Common Visit Codes: [id number]-QCZ/OBS DISCH DAY >30min Problem Qualifiers (1) Schizoaffective disorder: Qualified Codes: F25.9 - Schizoaffective disorder, unspecified PARISH SMITH APRN Aug 02, 2024 13:44
== END 2024-08-02 14:22 | disposition home or self-care (01) | DRG 750 ==
LOC: ER 15:43 → ED HOLD 07-09 → ADULT MH 07-09 00:43
PROVIDERS: ADMIT Psychiatry & Neurology Psychiatry; ATTEND Psychiatry & Neurology Psychiatry
PROC: GZHZZZZ Group Psychotherapy (ICD-10-PCS; principal; 2024-07-09)
PROC: GZ51ZZZ Individual Psychotherapy, Behavioral (ICD-10-PCS; 2024-07-09)
DX: F25.9 Schizoaffective disorder, unspecified (principal); R45.851 Suicidal ideations; E78.5 Hyperlipidemia, unspecified; F32.A Depression, unspecified; E87.6 Hypokalemia; R35.0 Frequency of micturition; K21.9 Gastro-esophageal reflux disease without esophagitis; K59.09 Other constipation; Z20.822 Contact with and (suspected) exposure to COVID-19; R13.10 Dysphagia, unspecified; Z59.00 Homelessness unspecified; Z91.011 Allergy to milk products
CPT/HCPCS: 36415; 80048; 80053; 80061; 80305; 80320; 81001; 81025; 83036; 84132; 84443; 85025; 87081; 87811; 92508; 92616; 99285; J1200; J1630; J3360; Q0177

== ENCOUNTER 2024-11-26 12:23 | Emergency (ER) | payer MEDICAID ==
[~2024-11-26] VITALS: Ht 165.1 cm; Wt 102.3 kg
[~2024-11-26 12:23] MED LIST: OLAN5TAB29 PO; PANT40TA54 PO; TRAZ-251 PO
[2024-11-26 12:32] VITALS: BP 115/67; PULSE 78; RESP 18; O2SAT 96
[2024-11-26] MEDS ORDERED: PERM60CR27 TOP (13:17)
--- NOTE | 2024-11-26 13:18 | Physician Documentation ---
History of Present Illness ~ Chief Complaint: Rash Stated Complaint: SCABIES EXPOSURE Time Seen by MD: 12:56 OK to notify your PCP?: Yes Source: patient Mode of Arrival: POV Exam Limitations: no limitations HPI 48-year-old female presents with linear rash to left nicholas and right forearm which is very itchy, worse at nighttime. Her roommate was diagnosed with scabies yesterday and she believes she was exposed. She did use some of her mary mmates left over cream to the site with slight improvement. She denies any drainage, pain or redness from the sites. Medication Reconciliation Allergies: Uncoded Allergies: Nuts, Peanuts (Allergy, Unknown, 07/22/24) Per pt, her mother told her she was allergic to nuts and peanuts but pt is unsure of her reaction to them. Scheduled Olanzapine (Olanzapine), 25 MG PO HS Pantoprazole Sodium (Pantoprazole Sodium), 40 MG PO BKF Scheduled PRN Trazodone HCl (Trazodone HCl), 50 MG PO PRN PRN for sleep Past Medical History Patient History: Patient reports no known family medical history. Review of Systems All Other Systems at this time: Reviewed and Negative Physical Exam Vital Signs: RN Vital Signs have been reviewed: Yes, Temperature: 98.8, Source: Temporal, Heart Rate: 78, Respiratory Rate: 18, BP: 115/67, Pulse Oximetry: 96, Weight: 102.300 Oxygen Flow Rate: 0 Pulse Oximetry Reflects: adequate oxygenation Physical Exam General: Alert, no distress. HEENT: No injection, moist mucous membranes. Neck: Full range of motion. Respiratory: No respiratory distress, equal chest rise and fall. Chest: No accessory muscle use. Cardiovascular: Regular rate and rhythm. Gastrointestinal: Nondistended. Extremities: Normal range of motion, no deformity. Neurologic: Oriented x4. Psychiatric: Normal mood and affect. Skin: Linear rash with 3 bite staton in a row to left anterior nicholas and right anterior forearm. Progress Results/Orders Reviewed/noted all lab results: Yes Results/Orders Vital Signs 11/26/24 12:32 Temp 98.8 Pulse 78 Resp 18 B/P (MAP) 115/67 Pulse Ox 96 O2 Flow Rate 0 Medical Decision Making Additional info obtained from: old records Findings 48-year-old female with a exposure to scabies who is now presenting with a scabies appearing rash by her physical exam. The rest of her physical exam is unremarkable. Her vital signs are stable, she is afebrile and she is nontoxic appearing. I have sent a prescription for permethrin cream to her pharmacy. She was given return instructions as well as follow up instructions. Differential Dx:Considerations: Include: Abscess, Contact dermatitis, Herpes zoster, Herpes simplex, Impetigo, Molluscum contagiosum, Psoriaisis, Rosacea, Viral exanthema Departure Disposition: 01 HOME / SELF CARE / HOMELESS Impression: Primary Impression: Scabies exposure Additional Impression: Urticaria Condition: Stable Discharge Instructions: Scabies, Adult Additional Instructions: Please refrain from itching your rash as this can cause a secondary infection that would require an antibiotic. Follow up with your primary care provider within the next week and return back here for any new or worsening symptoms. Referrals: NO PRIMARY CARE PROVIDER (PCP) Prescriptions Permethrin 5% Cream* (Elimite 5% Cream*) 60 Gm Cream.gm. 1 APPLIC TOP ONCE, #60 GM massage into skin from head to soles of feet one time, leave on for 8-14 hours then remove by thorough washing Prov: DOTTIE RICO 11/26/24 Education Educated: Patient, Family Educated regarding: diagnosis, treatment, prognosis, need for follow up Additional Comment Medical Screen Exam This patient recieved a medical screening examination. After reviewing the individual's medical complaints with presenting symptoms and performing an appropriate physical examination, it was determined that no immediate life- threatening emergency medical condition is present. This individual is also not a women having contractions. Signature Scribe Signature: . Attestation: Scribed for Dottie Rico by Dottie Billings NP . 11/26/24 13:17 Parts of this note were created using [employer] voice recognition software program. While efforts were made to correct any mistakes made by this voice recognition software program, nonsensical phrases may remain in this note. In addition, there may be errors and syntax, grammar, content and spelling. DOTTIE RICO Nov 26, 2024 13:18
[2024-11-26 13:28] VITALS: TEMP 98.8
== END 2024-11-26 13:29 | disposition home or self-care (01) ==
LOC: ER 12:24
DX: Z20.7 Contact with and (suspected) exposure to pediculosis, acariasis and other infestations (principal); L50.9 Urticaria, unspecified; Z91.010 Allergy to peanuts
CPT/HCPCS: 99282

== ENCOUNTER 2024-12-02 10:42 | Emergency (ER) | payer MEDICAID ==
[~2024-12-02] VITALS: Ht 167.6 cm; Wt 102.0 kg
[~2024-12-02 10:42] MED LIST changes: +PERM60CR27 TOP
[2024-12-02 10:48] VITALS: BP 117/72; PULSE 74; RESP 16; O2SAT 98
[2024-12-02] MEDS ORDERED: PERM60CR27 TOP (11:30)
--- NOTE | 2024-12-02 11:31 | Physician Documentation ---
History of Present Illness ~ Chief Complaint: Rash Stated Complaint: POSS SCABIES Time Seen by MD: 11:12 OK to notify your PCP?: Yes Source: patient Mode of Arrival: POV Exam Limitations: no limitations HPI 48-year-old female with chief complaint itchy red rash on her left lower back which started a few days ago. Rash is itchy at night. States that there is an outbreak where she is currently living. No fever, chills, shortness of breath. No pain. Medication Reconciliation Allergies: Uncoded Allergies: Nuts, Peanuts (Allergy, Unknown, 07/22/24) Per pt, her mother told her she was allergic to nuts and peanuts but pt is unsure of her reaction to them. Scheduled Olanzapine (Olanzapine), 25 MG PO HS Pantoprazole Sodium (Pantoprazole Sodium), 40 MG PO BKF Permethrin 5% Cream* (Elimite 5% Cream*), 1 APPLIC TOP ONCE Scheduled PRN Trazodone HCl (Trazodone HCl), 50 MG PO PRN PRN for sleep Past Medical History Patient History: Patient reports no known family medical history. Review of Systems All Other Systems at this time: Reviewed and Negative Physical Exam Vital Signs: Temperature: 97.5, Source: Temporal, Heart Rate: 74, Respiratory Rate: 16, BP: 117/72, Pulse Oximetry: 98, Weight: 102.000 Oxygen Flow Rate: 0 Physical Exam General Appearance: Alert, WD/WN. NAD. HEENT: NCAT, PERRL, EOMI. Neck: Supple, trachea midline. Cardiovascular: RRR. No m/r/g. Lungs: CTAB. Breathing unlabored Extremities: Normal inspection. No edema. Skin: LOWER BACK THERE ARE ERYTHEMATOUS PAPULES THAT ARE IN WAVY LINE WITH SURROUNDING EXCORIATION, NO PUSTULES, NO EDEMA. Neurological: Alert and oriented x4, normal gait. Psychiatric: Affect congruent with mood. Progress Results/Orders Results/Orders Vital Signs 12/02/24 10:48 Temp 97.5 Pulse 74 Resp 16 B/P (MAP) 117/72 Pulse Ox 98 O2 Flow Rate 0 Medical Decision Making Differential Dx:Considerations: Include: Abscess, AIDS/HIV, Anthrax (cutaneous), Atopic dermatitis, Candidiasis, Contact dermatitis, Drug reaction, Erythema multiforme, Erysipelas, Gangrene, Herpes zoster, Herpes simplex, Hidradenitis suppurativa, Impetigo, Intertrigo, Lymes disease, Molluscum contagiosum, Osteomyelitis, Pediculosis, Pityriasis rosea, Psoriaisis, RMSF, Rosacea, Scabies, Scarlet fever, Tinea, Urticaria, Varicella, Viral exanthema Departure Time of Disposition: 11:28 Disposition: 01 HOME / SELF CARE / HOMELESS Impression: Primary Impression: Scabies infestation Condition: Stable Discharge Instructions: Scabies, Adult Additional Instructions: PERMETHRIN TO AREA DISCUSSED WASH ALL BEDDING/CLOTHING Referrals: NO PRIMARY CARE PROVIDER (PCP) Prescriptions Permethrin 5% Cream* (Elimite 5% Cream*) 60 Gm Cream.gm. 1 APPLIC TOP ONCE, #60 GM massage into skin from head to soles of feet one time, leave on for 8-14 hours then remove by thorough washing REPEAT IN 7DAYS Prov: MARIAM WARNER 12/02/24 Education Educated: Patient Educated regarding: diagnosis, treatment, need for follow up Signature Scribe Signature: X Attestation: MARIAM CARPENTER Dec 02, 2024 11:31
[2024-12-02 11:38] VITALS: TEMP 97.5
== END 2024-12-02 11:39 | disposition home or self-care (01) ==
LOC: ER 10:43
DX: B86 Scabies (principal); Z79.899 Other long term (current) drug therapy
CPT/HCPCS: 99282

== ENCOUNTER 2025-02-04 14:21 | Emergency (ER) | payer MEDICAID ==
[~2025-02-04] VITALS: Ht 165.1 cm; Wt 96.3 kg
[~2025-02-04 14:21] MED LIST changes: -PERM60CR27 TOP
--- NOTE | 2025-02-04 14:27 | Physician Documentation ---
History of Present Illness ~ Stated Complaint: FALL Time Seen by MD: 14:33 HPI 49 yr old female presents to the emergency department reporting that she had a fall. Reports pain to her posterior head, back, bottom. When questioned about loss of consciousness, she is unclear. When questioned with the nature of her fall, she reports that she slipped on water. When questioned where the fall occurred, she reports at a place that I frequent. Reports that someone awakened her. Slow to respond to questions. Tetanus within 5 Years?: No Medication Reconciliation Allergies: Coded Allergies: No Known Drug Allergies (Verified Allergy, Unknown, 02/04/25) Uncoded Allergies: Nuts, Peanuts (Allergy, Unknown, 07/22/24) Per pt, her mother told her she was allergic to nuts and peanuts but pt is unsure of her reaction to them. Scheduled Olanzapine (Olanzapine), 25 MG PO HS Pantoprazole Sodium (Pantoprazole Sodium), 40 MG PO BKF Scheduled PRN Trazodone HCl (Trazodone HCl), 50 MG PO PRN PRN for sleep Past Medical History Patient History: Patient reports no known family medical history. Review of Systems ROS As stated above in the HPI, otherwise all systems are reviewed and negative. Physical Exam Physical Exam General: Alert, no apparent distress. Slow to respond to questions. HEENT: PERRL, EOMI, no injection, moist mucous membranes. Neck: Full range of motion. Head: Abrasion posterior scalp. Respiratory: Lungs clear, no respiratory distress. Chest: No accessory muscle use. Back: TTP across thoracic spine without crepitus or other abnormalities to palpation. Cardiovascular: Regular rate and rhythm, no murmurs. Gastrointestinal: Soft, nontender, nondistended. Bowels sounds present. Extremities: Normal range of motion, no deformity. Neurologic: Conversant, follows commands. Off statements.Slow to respond. No focal deficits. Psychiatric: Normal mood and affect. Skin: Normal color, warm and dry. Progress Results/Orders Results/Orders Orders - LACEY FINNEGAN NP Ct Head (02/04/25 14:32) Drug Screen, Urine (02/04/25 14:32) Urinalysis, Cult If Indicated (02/04/25 14:32) Sacrum & Coccyx (02/04/25 ) Completed Orders - LACEY FINNEGAN NP Ct Head (02/04/25 14:32) Ethanol (02/04/25 14:32) Cbc/Diff (02/04/25 14:32) BMP (02/04/25 14:32) Sacrum & Coccyx (02/04/25 ) Vital Signs 02/04/25 02/04/25 02/04/25 14:28 15:44 15:47 Temp 97.6 Pulse 72 67 Resp 18 16 16 B/P (MAP) 103/66 95/69 (78) Pulse Ox 98 96 O2 Flow Rate 0 0 Laboratory Tests Test 02/04/25 15:03 White Blood Count 9.6 Red Blood Count 4.50 Hemoglobin 13.1 Hematocrit 38.7 Mean Corpuscular Volume 86.0 Mean Corpuscular Hemoglobin 29.1 Mean Corpuscular Hemoglobin Concent 33.9 Red Cell Distribution Width 16.7 H Platelet Count 267 Mean Platelet Volume 8.8 Neutrophils (%) (Auto) 70.6 Lymphocytes (%) (Auto) 19.7 L Monocytes (%) (Auto) 7.8 Eosinophils (%) (Auto) 1.4 Basophils (%) (Auto) 0.5 Neutrophils # (Auto) 6.8 Lymphocytes # (Auto) 1.9 Monocytes # (Auto) 0.7 Eosinophils # (Auto) 0.1 Basophils # (Auto) 0.0 CBC Comment Sodium Level 139 Potassium Level 3.8 Chloride Level 109 H Carbon Dioxide Level 25.3 Anion Gap 5 L Blood Urea Nitrogen 17 Creatinine 0.91 H Estimated GFR/1.73 m2 65 BUN/Creatinine Ratio 18.7 Glucose Level 92 Calcium Level 8.1 L Albumin 3.4 Chemistry Comments Ethyl Alcohol Level < 10 EKG/XRAY/CT/US/VASC/MRI Bone/Soft Tissue X-Ray (Ext.) : Additional Comment [facility] [address] [facility], [facility] [id number] DIAGNOSTIC RADIOLOGY Patient: STEVEN MARINELLIORLIN Mckay Medical Record: [id number] [facility] 1975, Age: 49 Sex: Female Location: ER Patient Status: REG ER Service Date/Time: 02/04/25 Ordering Physician: LACEY FINNEGAN NP Exam: SACRUM & COCCYX INDICATION: trauma TECHNIQUE: 3 views of the sacrum/coccyx spine were obtained. COMPARISON: None FINDINGS: There are no acute fractures or subluxations. IMPRESSION: No acute fracture or subluxation. Electronically Signed by:STUART MENDOZA MD Date & Time: 02/04/251547 Dictated by: STUART MENDOZA MD Dictation date and time: 02/04/251547 Primary Care Provider: NO PRIMARY CARE PROVIDER cc: LACEY FINNEGAN NP ~ CT : Impression [place] [address] CAT SCAN Patient: PAGE MARINELLI Medical Record: [id number] [facility] 1975, Age: 49 Sex: Female Location: ER Patient Status: REG ER Service Date/Time: 02/04/251431 Ordering Physician: LACEY FINNEGAN NP Exam: CT HEAD Procedure: CT CT HEAD [facility] Study Date and Requested Time: 02/04/2025 03:17 PM History: trauma with possible loss of consciousness Comparison: None Dose: CTDI: 52.51 mGy DLP: 840.0 mGycm Technique: Multiplanar images obtained through the brain without intravenous contrast. Findings: Normal brain volume and formation. No hemorrhages, masses, mass effect, midline shift, herniation or cytotoxic edema following a large vascular territory. No intra-axial or extra-axial fluid collections. No evidence of hydrocephalus. The basal cisterns are patent. The pituitary gland, sella and parasellar regions are unremarkable. The cerebellar tonsils are in normal position. The cerebellum is unremarkable. The orbits and globes are unremarkable. The paranasal sinuses and mastoids are clear. There are no worrisome calvarial lesions. Impression: No evidence of acute intracranial abnormality. If symptoms persist, consider MRI for further evaluation. Electronically Signed by:LESLI WILSON DO Date & Time: 02/04/25 1523 Dictated by: LESLI WILSON DO Dictation date and time: 02/04/25 1523 Primary Care Provider: NO PRIMARY CARE PROVIDER cc: LACEY FINNEGAN NP ~ Medical Decision Making Additional information obtaine: old records Findings 12/02/24 was patient's last visit to this ER. This was for scabies concerns. Differential Dx:Considerations: Include: Closed head injury, Cardiac injury, Fracture(s), Intraabdominal injury, Pneumothorax, Cerebral contusion, Pulmonary contusion, Spine injury, Tracheal injury, Urological injury, Vascular injury, Abrasion(s), Contusion(s), Foreign body(s), Hematoma(s), Laceration(s), Encephalopathy Departure Time of Disposition: 16:22 Impression: Primary Impression: Fall Additional Impression: Head injury Condition: Stable Discharge Instructions: Fall Prevention in the Home, Adult, [id number], Head Injury, Adult Additional Instructions: CT head normal. You do not have evidence of a fracture of your coccyx or sacrum. Use [id number] Tylenol or ibuprofen as needed for pain. Ice to sore areas. Return if worse Referrals: NO PRIMARY CARE PROVIDER (PCP) Education Educated: Patient Educated regarding: diagnosis, treatment, prognosis, need for follow up Signature Scribe Signature: x Attestation: The note accurately reflects work and decisions made by me.Lacey Billings NP 02/04/25 14:32 LACEY FINNEGAN NP Feb 04, 2025 14:27
[2025-02-04 14:28] VITALS: TEMP 97.6
[2025-02-04 15:13] LABS: MEAN PLATELET VOLUME 8.8 FL (7.4-10.4); RED CELL DISTRIBUTION WIDTH 16.7 % (11.5-14.5)
[2025-02-04 15:22] LABS: CREATININE 0.91 MG/DL (0.40-0.90); TOTAL CARBON DIOXIDE 25.3 MMOL/L (24-32); eCRCL 66 ML/MIN; eGFR 65 ML/MIN
--- NOTE | 2025-02-04 15:25 | RADIOLOGY REPORT ---
Procedure: CT CT HEAD [facility] Study Date and Requested Time: 02/04/2025 03:17 PM History: trauma with possible loss of consciousness Comparison: None Dose: CTDI: 52.51 mGy DLP: 840.0 mGycm Technique: Multiplanar images obtained through the brain without intravenous contrast. Findings: Normal brain volume and formation. No hemorrhages, masses, mass effect, midline shift, herniation or cytotoxic edema following a large vascular territory. No intra-axial or extra-axial fluid collections. No evidence of hydrocephalus. The basal cisterns are patent. The pituitary gland, sella and parasellar regions are unremarkable. The cerebellar tonsils are in normal position. The cerebellum is unremarkable. The orbits and globes are unremarkable. The paranasal sinuses and mastoids are clear. There are no worrisome calvarial lesions. Impression: No evidence of acute intracranial abnormality. If symptoms persist, consider MRI for further evaluation.
[2025-02-04 15:32] LABS: ETHANOL < 10 MG/DL (<10)
[2025-02-04 15:47] VITALS: BP 95/69; PULSE 67; RESP 16; O2SAT 96
--- NOTE | 2025-02-04 15:50 | RADIOLOGY REPORT ---
INDICATION: trauma TECHNIQUE: 3 views of the sacrum/coccyx spine were obtained. COMPARISON: None FINDINGS: There are no acute fractures or subluxations. IMPRESSION: No acute fracture or subluxation.
== END 2025-02-04 16:18 | disposition left against medical advice (07) ==
LOC: ER 14:21
DX: S00.01XA Abrasion of scalp, initial encounter (principal); Z79.899 Other long term (current) drug therapy; W01.0XXA Fall on same level from slipping, tripping and stumbling without subsequent striking against object, initial encounter; Y93.89 Activity, other specified; Y92.89 Other specified places as the place of occurrence of the external cause; Y99.8 Other external cause status
CPT/HCPCS: 36415; 70450; 72220; 80048; 80320; 85025; 99284